=== PATIENT | male | born 1950 | race Caucasian/White ===

== ENCOUNTER 2020-03-12 12:50 | Observation (INO) | payer MEDICARE, OTHER ==
[2020-03-12] MEDS ORDERED: Sodium Chloride 0.9% 10 ML Syringe FLUSH PRN (13:00)
[2020-03-12] MEDS ORDERED: Albuterol 6.7 GM Inhaler INH ONE (13:03)
[2020-03-12] MEDS ORDERED: methylPREDNISolone Sodium Succinate 125 MG/2 ML SDV IVPUSH ONE (13:04)
--- NOTE | 2020-03-12 13:42 | CR ---
Chest: Portable view of the chest was obtained. Comparison: Prior chest x-ray of 02/22/14. Findings: Heart size is slightly enlarged. Upper mediastinum is normal. Lungs are clear with no acute parenchymal change. Bony structures show nothing acute. Impression: 1. Findings as noted above. 2. Nothing acute is seen on portable chest x-ray. Diagnostic code #2
--- NOTE | 2020-03-12 13:43 | EDM.PDOC ---
ED HPI GENERAL MEDICAL PROBLEM - General Chief Complaint: Respiratory Problem Stated Complaint: [facility] Time Seen by Provider: 03/12/20 12:51 Source of Information: Reports: Patient, EMS History Limitations: Reports: No Limitations - History of Present Illness INITIAL COMMENTS - FREE TEXT/NARRATIVE: The patient presents by [facility] for a fall and low oxygen saturations. He is not sure why he fell. He was confused on scene and his oxygen saturations were in the low 80s. He was put on oxygen by nasal cannula and he is doing better. He did not hit his head or hurt his neck. He is on eliquis for atrial fibrillation. He has no headache or neck pain. He has no fever or chills. He rbuin have a cough and shortness of breath. He has no chest pain, abdominal pain, nausea or vomiting. He has no numbness. He does have generalized weakness. He is a daily smoker. He does not have a history of lung issues such as asthma or COPD. Onset: Sudden Duration: Minutes: Severity: Moderate Improves with: Reports: None Worsens with: Reports: None Context: Reports: Trauma (fall) Associated Symptoms: Reports: Cough, Shortness of Breath. Denies: Chest Pain, Fever/Chills, Headaches, Nausea/Vomiting - Related Data Allergies Allergy/AdvReac Type Severity Reaction Status Date / Time No Known Allergies Allergy Verified 03/12/20 12:55 Home Meds: Home Meds Apixaban [Eliquis] 5 mg PO BID 03/12/20 [History] atenoloL [Atenolol] 100 mg PO DAILY 03/12/20 [History] hydroCHLOROthiazide [Hydrochlorothiazide] 12.5 mg PO DAILY 03/12/20 [History] lisinopriL [Lisinopril] 5 mg PO DAILY 03/12/20 [History] Past Medical History Cardiovascular History: Reports: Hypertension Social & Family History - Tobacco Use Tobacco Use Status *Q: Current Every Day Tobacco User Years of Tobacco use: 50 Packs/Tins Daily: 1 - Recreational Drug Use Recreational Drug Use: No ED ROS GENERAL - Review of Systems Review Of Systems: See Below Constitutional: Reports: No Symptoms HEENT: Reports: No Symptoms Respiratory: Reports: Shortness of Breath, Cough Cardiovascular: Reports: No Symptoms Endocrine: Reports: No Symptoms GI/Abdominal: Reports: No Symptoms : Reports: No Symptoms Musculoskeletal: Reports: No Symptoms ED EXAM, GENERAL - Physical Exam Exam: See Below Exam Limited By: No Limitations General Appearance: Alert, No Apparent Distress Ears: Normal External Exam Nose: Normal Inspection Head: Atraumatic, Normocephalic Neck: Normal Inspection Respiratory/Chest: No Respiratory Distress, Decreased Breath Sounds, Wheezing (Moderate) Cardiovascular: No Murmur, Irregularly Irregular, Other (Edema in both legs) #1 Interpretation EKG Date: 03/12/20 Time: 13:19 Rhythm: A-Fib Rate (Beats/Min): 90 [place]: Normal P-Wave: Absent QRS: Normal ST-T: Other (Flattened T waves in the anterior leads) QT: Normal Course - Vital Signs Last Recorded V/S: Last Vital Signs Temp 97.3 F 03/12/20 15:17 Pulse 100 03/12/20 15:17 Resp 13 03/12/20 15:17 BP 117/91 H 03/12/20 15:18 Pulse Ox 95 03/12/20 15:17 - Orders/Labs/Meds Orders: Active Orders 24 hr Category Date Time Status Blood Pressure Mgt: Sepsis [RC] Q15MX2 Care 03/12/20 14:57 Active Cardiac Monitoring [RC] . DIRECTED Care 03/12/20 13:00 Active EKG Documentation Completion [RC] STAT Care 03/12/20 13:01 Active Oxygen Therapy [RC] PRN Care 03/12/20 13:00 Active Peripheral IV Care [RC] . DIRECTED Care 03/12/20 13:01 Active RT Post Treatment Assessment [RC] Click to Edit Care 03/12/20 13:03 Active RT Pre-Treatment Assessment [RC] Click to Edit Care 03/12/20 13:03 Active CULTURE BLOOD [BC] Stat Lab 03/12/20 13:30 Received CULTURE BLOOD [BC] Stat Lab 03/12/20 13:40 Received INR,PT,PROTHROMBIN TIME [COAG] Stat Lab 03/12/20 14:08 Received LACTIC ACID [CHEM] Stat Lab 03/12/20 16:40 Ordered UA W/MICROSCOPIC [URIN] Stat Lab 03/12/20 13:00 Ordered Lactated Ringers [Ringers, Lactated] 1,000 ml Med 03/12/20 15:00 Active IV ASDIRECTED Sodium Chloride 0.9% [Saline Flush] Med 03/12/20 13:00 Active 10 ml FLUSH ASDIRECTED PRN Blood Culture x2 Reflex Set [OM.PC] Stat Oth 03/12/20 13:03 Ordered Peripheral IV Insertion Adult [OM.PC] Stat Oth 03/12/20 13:00 Ordered Medication Orders Lactated Ringer's (Ringers, Lactated) 1,000 mls @ 1,000 mls/hr IV ASDIRECTED ADAMA Stop: 03/14/20 15:59 Last Admin: 03/12/20 15:14 Dose: 1,000 mls/hr Documented by: GLADIS Sodium Chloride (Saline Flush) 10 ml FLUSH ASDIRECTED PRN PRN Reason: Keep Vein Open Last Admin: 03/12/20 13:11 Dose: 10 ml Documented by: STPEHANIA Labs: Laboratory Tests 03/12/20 03/12/20 03/12/20 Range/Units 13:10 13:40 14:08 WBC 7.93 (4.23-9.07) K/mm3 RBC 4.46 L (4.63-6.08) M/mm3 Hgb 15.4 (13.7-17.5) gm/dl Hct 46.6 (40.1-51.0) % MCV 104.5 H D (79.0-92.2) fl MCH 34.5 H (25.7-32.2) pg MCHC 33.0 (32.2-35.5) g/dl RDW Std Deviation 54.8 H (35.1-43.9) fL Plt Count 241 (163-337) K/mm3 MPV 9.5 (9.4-12.3) fl Neut % (Auto) 61.4 (34.0-67.9) % Lymph % (Auto) 27.5 (21.8-53.1) % [place] % (Auto) 9.3 (5.3-12.2) % Eos % (Auto) 1.0 (0.8-7.0) Baso % (Auto) 0.5 (0.1-1.2) % Neut # (Auto) 4.87 (1.78-5.38) K/mm3 Lymph # (Auto) 2.18 (1.32-3.57) K/mm3 [place] # (Auto) 0.74 (0.30-0.82) K/mm3 Eos # (Auto) 0.08 (0.04-0.54) K/mm3 Baso # (Auto) 0.04 (0.01-0.08) K/mm3 Sodium (136-145) mEq/L Potassium (3.5-5.1) mEq/L Chloride (98-107) mEq/L Carbon Dioxide (21-32) mEq/L Anion Gap (5-15) BUN (7-18) mg/dL Creatinine (0.7-1.3) mg/dL Est Cr Clr Drug Dosing mL/min Estimated GFR (MDRD) (>60) mL/min BUN/Creatinine Ratio (14-18) Glucose (80-115) mg/dL Lactic Acid 4.2 H* (0.4-2.0) mmol/L Calcium (8.5-10.1) mg/dL Total Bilirubin (0.2-1.0) mg/dL AST (15-37) U/L ALT (16-63) U/L Alkaline Phosphatase (46-116) U/L Troponin I (0.00-0.056) ng/mL C-Reactive Protein (<1.0) mg/dL Total Protein (6.4-8.2) g/dl Albumin (3.4-5.0) g/dl Globulin gm/dL Albumin/Globulin Ratio (1-2) Ethyl Alcohol (0.00) gm% SARS-CoV-2 RNA (ELIZABETH) Negative (NEGATIVE) 03/12/20 03/12/20 Range/Units 14:08 14:08 WBC (4.23-9.07) K/mm3 RBC (4.63-6.08) M/mm3 Hgb (13.7-17.5) gm/dl Hct (40.1-51.0) % MCV (79.0-92.2) fl MCH (25.7-32.2) pg MCHC (32.2-35.5) g/dl RDW Std Deviation (35.1-43.9) fL Plt Count (163-337) K/mm3 MPV (9.4-12.3) fl Neut % (Auto) (34.0-67.9) % Lymph % (Auto) (21.8-53.1) % [place] % (Auto) (5.3-12.2) % Eos % (Auto) (0.8-7.0) Baso % (Auto) (0.1-1.2) % Neut # (Auto) (1.78-5.38) K/mm3 Lymph # (Auto) (1.32-3.57) K/mm3 [place] # (Auto) (0.30-0.82) K/mm3 Eos # (Auto) (0.04-0.54) K/mm3 Baso # (Auto) (0.01-0.08) K/mm3 Sodium 142 (136-145) mEq/L Potassium 4.3 (3.5-5.1) mEq/L Chloride 102 (98-107) mEq/L Carbon Dioxide 30 (21-32) mEq/L Anion Gap 14.3 (5-15) BUN 44 H (7-18) mg/dL Creatinine 1.7 H (0.7-1.3) mg/dL Est Cr Clr Drug Dosing 41.75 mL/min Estimated GFR (MDRD) 40 (>60) mL/min BUN/Creatinine Ratio 25.9 H (14-18) Glucose 106 (80-115) mg/dL Lactic Acid (0.4-2.0) mmol/L Calcium 8.8 (8.5-10.1) mg/dL Total Bilirubin 0.7 (0.2-1.0) mg/dL AST 98 H (15-37) U/L ALT 69 H (16-63) U/L Alkaline Phosphatase 138 H (46-116) U/L Troponin I < 0.017 (0.00-0.056) ng/mL C-Reactive Protein 1.0 (<1.0) mg/dL Total Protein 7.2 (6.4-8.2) g/dl Albumin 3.4 (3.4-5.0) g/dl Globulin 3.8 gm/dL Albumin/Globulin Ratio 0.9 L (1-2) Ethyl Alcohol 0.20 (0.00) gm% SARS-CoV-2 RNA (ELIZABETH) (NEGATIVE) Meds: Medications Generic Name Dose Route Start Last Admin Trade Name Freq PRN Reason Stop Dose Admin Lactated Ringer's 1,000 mls @ 1,000 mls/hr 03/12/20 15:00 03/12/20 15:14 Ringers, Lactated IV 03/14/20 15:59 1,000 mls/hr ASDIRECTED ADAMA Administration Sodium Chloride 10 ml 03/12/20 13:00 03/12/20 13:11 Saline Flush FLUSH 10 ml ASDIRECTED PRN Administration Keep Vein Open Discontinued Medications Generic Name Dose Route Start Last Admin Trade Name Freq PRN Reason Stop Dose Admin Albuterol 0 gm 03/12/20 13:03 03/12/20 13:22 Proventil Hfa INH 03/12/20 13:04 2 puff ONETIME ONE Administration Ceftriaxone Sodium 2 gm/ 100 mls @ 200 mls/hr 03/12/20 14:51 03/12/20 15:15 Sodium Chloride IV 03/12/20 15:20 200 mls/hr ONETIME ONE Administration Methylprednisolone Sodium Succinate 125 mg 03/12/20 13:04 03/12/20 13:10 Solu-Medrol IVPUSH 03/12/20 13:05 125 mg ONETIME ONE Administration - Re-Assessments/Exams Free Text/Narrative Re-Assessment/Exam: 03/12/20 13:46 I ordered oxygen, IV saline lock, EKG, CXR, CT of his head, labs, albuterol and COVID 19. 03/12/20 15:21 His CXR shows nothing acute. His EKG shows atrial fibrillation with no acute changes. The CT of his head shows low density within the right temporal region suspicious for small old infarct. Other senescent change as noted above. No acute intracranial hemorrhage is appreciated. His CBC looks good. His creatinine is elevated at 1.7. His lactic acid is elevated at 4.2. His AST was elevated at 98. His ALT was elevated at 69. His alk phos is elevated at 138. His troponin is negative. His CRP is normal. His COVID 19 test is negative. His lungs sound better but he is still requiring oxygen. I feel he has some undiagnosed COPD. I have ordered rocephin 2grams IV and a fluid bolus. His lactic acid is high. His blood alcohol is elevate at 0.2. I do not feel this is sepsis. I feel this is a COPD exacerbation with dehydration. Departure - Departure Time of Disposition: 15:35 Disposition: Admitted As Inpatient 65 Condition: Poor Clinical Impression: COPD exacerbation, Hypoxia, Dehydration, Elevated lactic acid level Fall Qualifiers: Encounter type: initial encounter Qualified Code(s): W19.XXXA - Unspecified fall, initial encounter Alcohol intoxication Qualifiers: Complication of substance-induced condition: uncomplicated Qualified Code(s): F10.920 - Alcohol use, unspecified with intoxication, uncomplicated - Discharge Information Referrals: Matteo Kaur Jr, MD [Primary Care Provider] - Forms: ED Department Discharge Sepsis Event Note (ED) - Evaluation Sepsis Screening Result: No Definite Risk - Focused Exam Vital Signs: Vital Signs Temp Pulse Resp BP Pulse Ox 03/12/20 15:18 117/91 H 03/12/20 15:17 97.3 F 100 13 95 03/12/20 12:51 97.2 F 87 13 112/86 94 L - My Orders Last 24 Hours: My Active Orders 03/12/20 13:00 Cardiac Monitoring [RC] . DIRECTED Oxygen Therapy [RC] PRN UA W/MICROSCOPIC [URIN] Stat Sodium Chloride 0.9% [Saline Flush] 10 ml FLUSH ASDIRECTED PRN Peripheral IV Insertion Adult [OM.PC] Stat 03/12/20 13:01 EKG Documentation Completion [RC] STAT Peripheral IV Care [RC] . DIRECTED 03/12/20 13:03 RT Post Treatment Assessment [RC] Click to Edit RT Pre-Treatment Assessment [RC] Click to Edit Blood Culture x2 Reflex Set [OM.PC] Stat 03/12/20 13:30 CULTURE BLOOD [BC] Stat 03/12/20 13:40 CULTURE BLOOD [BC] Stat 03/12/20 14:08 INR,PT,PROTHROMBIN TIME [COAG] Stat 03/12/20 14:57 Blood Pressure Mgt: Sepsis [RC] Q15MX2 03/12/20 15:00 Lactated Ringers [Ringers, Lactated] 1,000 ml IV ASDIRECTED 03/12/20 16:40 LACTIC ACID [CHEM] Stat - Assessment/Plan Last 24 Hours: My Active Orders 03/12/20 13:00 Cardiac Monitoring [RC] . DIRECTED Oxygen Therapy [RC] PRN UA W/MICROSCOPIC [URIN] Stat Sodium Chloride 0.9% [Saline Flush] 10 ml FLUSH ASDIRECTED PRN Peripheral IV Insertion Adult [OM.PC] Stat 03/12/20 13:01 EKG Documentation Completion [RC] STAT Peripheral IV Care [RC] . DIRECTED 03/12/20 13:03 RT Post Treatment Assessment [RC] Click to Edit RT Pre-Treatment Assessment [RC] Click to Edit Blood Culture x2 Reflex Set [OM.PC] Stat 03/12/20 13:30 CULTURE BLOOD [BC] Stat 03/12/20 13:40 CULTURE BLOOD [BC] Stat 03/12/20 14:08 INR,PT,PROTHROMBIN TIME [COAG] Stat 03/12/20 14:57 Blood Pressure Mgt: Sepsis [RC] Q15MX2 03/12/20 15:00 Lactated Ringers [Ringers, Lactated] 1,000 ml IV ASDIRECTED 03/12/20 16:40 LACTIC ACID [CHEM] Stat
--- NOTE | 2020-03-12 14:18 | CT ---
Head CT Technique: Multiple axial sections through the brain were obtained. Intravenous contrast was not utilized. Comparison: No prior intracranial imaging is available. Findings: Ventricles along with basal cisterns and sulci over the convexities are moderately prominent. 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 Mild areas of diminished density are noted within the periventricular white matter which is most likely due to small vessel ischemic demyelination change. No evidence of intracranial hemorrhage. No midline shift or mass-effect is appreciated. Bone window settings were reviewed. Visualized paranasal sinuses and mastoid sinuses show nothing acute. No acute calvarial finding is appreciated. Impression: 1. Low density within the right temporal region suspicious for small old infarct. 2. Other senescent change as noted above. 3. No acute intracranial hemorrhage is appreciated. Diagnostic code #2
[2020-03-12] MEDS ORDERED: cefTRIAXone 2 GM in Sodium Chloride 0.9% 100 ML IV ONE (14:51)
[2020-03-12] MEDS ORDERED: Lactated Ringers 1,000 ML IV SCH (15:00)
[2020-03-12] MEDS ORDERED: Docusate Sodium 100 MG Cap PO PRN (15:57)
[2020-03-12] MEDS ORDERED: Ondansetron 4 MG Tab.DIS PO PRN (15:57)
[2020-03-12] MEDS ORDERED: Acetaminophen 325 MG Tab PO PRN (15:57)
[2020-03-12] MEDS ORDERED: oxyCODONE 5 MG Tab PO PRN (15:57)
[2020-03-12] MEDS ORDERED: Sodium Chloride 0.9% 1,000 ML IV SCH (16:00)
--- NOTE | 2020-03-12 16:12 | PCM.HP.2 ---
H&P History of Present Illness - General Date of Service: 03/12/20 Admit Problem/Dx: Admission Diagnosis/Problem Admission Diagnosis/Problem COPD, Moderate chronic obstructive pulmonary disease Source of Information: Patient History Limitations: Reports: No Limitations, Intoxication - History of Present Illness Initial Comments - Free Text/Narative: The patient is a 69-year-old gentleman who had presented to the emergency department after a fall and low oxygen saturations. The patient was also noted to have low oxygen saturations. He does not remember what happened with his fall. The patient is a heavy smoker and has not been diagnosed with COPD or emphysema yet. Patient also had alcohol consumption before presentation to the emergency department. The patient has denied any pain. He does not have any withdrawal symptoms. The patient has had that he would like to have a nicotine patch. The patient also has denied any fever or chills. He has had no nausea or vomiting. The patient's home medications that include Eliquis 5 mg p.o. twice daily, atenolol 100 mg p.o. daily, hydrochlorothiazide 12.5 mg daily and lisinopril 5 mg p.o. daily. The patient says that he is not sure why he has been taking Eliquis. The patient has no other complaints at this time. Onset of Symptoms: Reports: Sudden Duration of Symptoms: Reports: Day(s): Severity: Mild Improves with: Reports: None Worsens with: Reports: None Associated Symptoms: Reports: No Other Symptoms - Related Data Allergies/Adverse Reactions: Allergies Allergy/AdvReac Type Severity Reaction Status Date / Time No Known Allergies Allergy Verified 03/12/20 12:55 Home Medications: Home Meds Apixaban [Eliquis] 5 mg PO BID 03/12/20 [History] atenoloL [Atenolol] 100 mg PO DAILY 03/12/20 [History] hydroCHLOROthiazide [Hydrochlorothiazide] 12.5 mg PO DAILY 03/12/20 [History] lisinopriL [Lisinopril] 5 mg PO DAILY 03/12/20 [History] Past Medical History HEENT History: Reports: None Cardiovascular History: Reports: Afib, Hypertension Respiratory History: Reports: None Gastrointestinal History: Reports: None Genitourinary History: Reports: None Musculoskeletal History: Reports: None Psychiatric History: Reports: Anxiety Endocrine/Metabolic History: Reports: None Hematologic History: Reports: None Immunologic History: Reports: None Dermatologic History: Reports: None - Infectious Disease History Infectious Disease History: Reports: None Social & Family History - Tobacco Use Tobacco Use Status *Q: Current Every Day Tobacco User Years of Tobacco use: 50 Packs/Tins Daily: 1 - Alcohol Use Alcohol Use History: Yes Alcohol Use in Last Twelve Months: Yes Alcohol Use Frequency: Daily - Recreational Drug Use Recreational Drug Use: No - Living Situation & Occupation Living situation: Reports: , with Spouse Occupation: Retired H&P Review of Systems - Review of Systems: Review Of Systems: See Below General: Reports: Weakness HEENT: Reports: No Symptoms Pulmonary: Reports: No Symptoms Cardiovascular: Reports: No Symptoms Gastrointestinal: Reports: No Symptoms Genitourinary: Reports: No Symptoms Musculoskeletal: Reports: No Symptoms Skin: Reports: No Symptoms Psychiatric: Reports: Anxiety Neurological: Reports: No Symptoms Hematologic/Lymphatic: Reports: No Symptoms Immunologic: Reports: No Symptoms Exam - Exam Exam: See Below - Vital Signs Vital Signs: Last Vital Signs Temp 36.3 C 03/12/20 15:17 Pulse 100 03/12/20 15:17 Resp 13 03/12/20 15:17 BP 117/91 H 03/12/20 15:18 Pulse Ox 95 03/12/20 15:17 Weight: 77.111 kg - Exam Quality Assessment: Supplemental Oxygen, DVT Prophylaxis General: Alert, Oriented, Cooperative HEENT: Conjunctiva Clear, EACs Clear, Hearing Intact, Mucosa Moist & [place], Pupils Equal, Pupils Reactive, PERRLA Neck: Supple, Trachea Midline Lungs: Decreased Breath Sounds, Crackles, Rales Cardiovascular: Regular Rate, Irregular Rhythm GI/Abdominal Exam: Normal Bowel Sounds, Soft, Non-Tender, No Distention (Male) Exam: Deferred Rectal (Males) Exam: Deferred Back Exam: Normal Inspection, Full Range of Motion Extremities: Normal Inspection, No Pedal Edema Skin: Warm, Dry, Intact, Other (The patient's face is flushed red) Neurological: Cranial Nerves Intact, Normal Gait, Normal Speech Neuro Extensive - Mental Status: Alert, Oriented x3 Neuro Extensive - Motor, Sensory, Reflexes: CN II-XII Intact Psychiatric: Alert, Normal Affect, Anxious - Patient Data Lab Results Last 24 hrs: Laboratory Results - last 24 hr 03/12/20 03/12/20 03/12/20 Range/Units 13:10 13:40 14:08 WBC 7.93 (4.23-9.07) K/mm3 RBC 4.46 L (4.63-6.08) M/mm3 Hgb 15.4 (13.7-17.5) gm/dl Hct 46.6 (40.1-51.0) % MCV 104.5 H D (79.0-92.2) fl MCH 34.5 H (25.7-32.2) pg MCHC 33.0 (32.2-35.5) g/dl RDW Std Deviation 54.8 H (35.1-43.9) fL Plt Count 241 (163-337) K/mm3 MPV 9.5 (9.4-12.3) fl Neut % (Auto) 61.4 (34.0-67.9) % Lymph % (Auto) 27.5 (21.8-53.1) % [place] % (Auto) 9.3 (5.3-12.2) % Eos % (Auto) 1.0 (0.8-7.0) Baso % (Auto) 0.5 (0.1-1.2) % Neut # (Auto) 4.87 (1.78-5.38) K/mm3 Lymph # (Auto) 2.18 (1.32-3.57) K/mm3 [place] # (Auto) 0.74 (0.30-0.82) K/mm3 Eos # (Auto) 0.08 (0.04-0.54) K/mm3 Baso # (Auto) 0.04 (0.01-0.08) K/mm3 PT (9.7-12.0) SECONDS INR Sodium (136-145) mEq/L Potassium (3.5-5.1) mEq/L Chloride (98-107) mEq/L Carbon Dioxide (21-32) mEq/L Anion Gap (5-15) BUN (7-18) mg/dL Creatinine (0.7-1.3) mg/dL Est Cr Clr Drug Dosing mL/min Estimated GFR (MDRD) (>60) mL/min BUN/Creatinine Ratio (14-18) Glucose (80-115) mg/dL Lactic Acid 4.2 H* (0.4-2.0) mmol/L Calcium (8.5-10.1) mg/dL Total Bilirubin (0.2-1.0) mg/dL AST (15-37) U/L ALT (16-63) U/L Alkaline Phosphatase (46-116) U/L Troponin I (0.00-0.056) ng/mL C-Reactive Protein (<1.0) mg/dL Total Protein (6.4-8.2) g/dl Albumin (3.4-5.0) g/dl Globulin gm/dL Albumin/Globulin Ratio (1-2) Ethyl Alcohol (0.00) gm% SARS-CoV-2 RNA (ELIZABETH) Negative (NEGATIVE) 03/12/20 03/12/20 03/12/20 Range/Units 14:08 14:08 14:08 WBC (4.23-9.07) K/mm3 RBC (4.63-6.08) M/mm3 Hgb (13.7-17.5) gm/dl Hct (40.1-51.0) % MCV (79.0-92.2) fl MCH (25.7-32.2) pg MCHC (32.2-35.5) g/dl RDW Std Deviation (35.1-43.9) fL Plt Count (163-337) K/mm3 MPV (9.4-12.3) fl Neut % (Auto) (34.0-67.9) % Lymph % (Auto) (21.8-53.1) % [place] % (Auto) (5.3-12.2) % Eos % (Auto) (0.8-7.0) Baso % (Auto) (0.1-1.2) % Neut # (Auto) (1.78-5.38) K/mm3 Lymph # (Auto) (1.32-3.57) K/mm3 [place] # (Auto) (0.30-0.82) K/mm3 Eos # (Auto) (0.04-0.54) K/mm3 Baso # (Auto) (0.01-0.08) K/mm3 PT 11.0 (9.7-12.0) SECONDS INR 1.03 Sodium 142 (136-145) mEq/L Potassium 4.3 (3.5-5.1) mEq/L Chloride 102 (98-107) mEq/L Carbon Dioxide 30 (21-32) mEq/L Anion Gap 14.3 (5-15) BUN 44 H (7-18) mg/dL Creatinine 1.7 H (0.7-1.3) mg/dL Est Cr Clr Drug Dosing 41.75 mL/min Estimated GFR (MDRD) 40 (>60) mL/min BUN/Creatinine Ratio 25.9 H (14-18) Glucose 106 (80-115) mg/dL Lactic Acid (0.4-2.0) mmol/L Calcium 8.8 (8.5-10.1) mg/dL Total Bilirubin 0.7 (0.2-1.0) mg/dL AST 98 H (15-37) U/L ALT 69 H (16-63) U/L Alkaline Phosphatase 138 H (46-116) U/L Troponin I < 0.017 (0.00-0.056) ng/mL C-Reactive Protein 1.0 (<1.0) mg/dL Total Protein 7.2 (6.4-8.2) g/dl Albumin 3.4 (3.4-5.0) g/dl Globulin 3.8 gm/dL Albumin/Globulin Ratio 0.9 L (1-2) Ethyl Alcohol 0.20 (0.00) gm% SARS-CoV-2 RNA (ELIZABETH) (NEGATIVE) Result Diagrams: 03/13/20 05:30 03/13/20 05:30 Sepsis Event Note - Evaluation Sepsis Screening Result: No Definite Risk - Focused Exam Vital Signs: Vital Signs Temp Pulse Resp BP Pulse Ox 03/12/20 15:18 117/91 H 03/12/20 15:17 36.3 C 100 13 95 03/12/20 15:12 117/91 H 03/12/20 12:51 36.2 C 87 13 112/86 94 L - Problem List (1) COPD exacerbation SNOMED Code(s): 777226133 ICD Code: J44.1 - CHRONIC OBSTRUCTIVE PULMONARY DISEASE W (ACUTE) EXACERBATION Status: Chronic Priority: High Current Visit: Yes (2) Alcohol intoxication SNOMED Code(s): 58431368 ICD Code: F10.929 - ALCOHOL USE, UNSPECIFIED WITH INTOXICATION, UNSPECIFIED Status: Chronic Priority: High Current Visit: Yes Qualifiers: Complication of substance-induced condition: uncomplicated Qualified Code(s): F10.920 - Alcohol use, unspecified with intoxication, uncomplicated (3) Chronic a-fib SNOMED Code(s): 475642020 ICD Code: I48.20 - CHRONIC ATRIAL FIBRILLATION, UNSPECIFIED Status: Chronic Priority: Medium Current Visit: Yes (4) Hypoxia SNOMED Code(s): 603144448 ICD Code: R09.02 - HYPOXEMIA Status: Acute Priority: High Current Visit : Yes Problem List Initiated/Reviewed/Updated: Yes Orders Last 24hrs: Active Orders 24 hr Category Date Time Status Patient Status [ADT] Routine ADT 03/12/20 16:04 Ordered Blood Pressure Mgt: Sepsis [RC] [id number] Care 03/12/20 14:57 Active Cardiac Monitoring [RC] . DIRECTED Care 03/12/20 13:00 Active EKG Documentation Completion [RC] STAT Care 03/12/20 13:01 Active Oxygen Therapy [RC] PRN Care 03/12/20 13:00 Active Oxygen Therapy [RC] PRN Care 03/12/20 16:04 Ordered Peripheral IV Care [RC] . DIRECTED Care 03/12/20 13:01 Active RT Aerosol Therapy [RC] ASDIRECTED Care 03/12/20 16:08 Ordered RT Post Treatment Assessment [RC] Click to Edit Care 03/12/20 13:03 Active RT Pre-Treatment Assessment [RC] Click to Edit Care 03/12/20 13:03 Active Up With Assistance [RC] ASDIRECTED Care 03/12/20 15:57 Ordered VTE/DVT Education [RC] PER UNIT ROUTINE Care 03/12/20 16:04 Ordered Vital Signs [RC] Q4H Care 03/12/20 16:04 Ordered Heart Healthy Diet [DIET] Diet 03/12/20 Dinner Ordered CBC WITH AUTO DIFF [HEME] AM Lab 03/13/20 05:11 Ordered COMPREHENSIVE METABOLIC PN,CMP [CHEM] AM Lab 03/13/20 05:11 Ordered CULTURE BLOOD [BC] Stat Lab 03/12/20 13:30 Received CULTURE BLOOD [BC] Stat Lab 03/12/20 13:40 Received LACTIC ACID [CHEM] Stat Lab 03/12/20 16:40 Ordered MAGNESIUM [CHEM] AM Lab 03/13/20 05:11 Ordered UA W/MICROSCOPIC [URIN] Stat Lab 03/12/20 13:00 Ordered Acetaminophen [TylenoL] Med 03/12/20 15:57 Ordered 650 mg PO Q4H PRN Albuterol/Ipratropium [DuoNeb 3.0-0.5 MG/3 ML] Med 03/12/20 15:57 Ordered 3 ml NEB Q4H PRN Azithromycin [Zithromax] 500 mg Med 03/12/20 16:00 Ordered Sodium Chloride 0.9% [Normal Saline (AdvBag)] 250 ml IV Q24H Docusate Sodium [Colace] Med 03/12/20 15:57 Ordered 100 mg PO BID PRN Lactated Ringers [Ringers, Lactated] 1,000 ml Med 03/12/20 15:00 Active IV ASDIRECTED Nicotine [Habitrol] Med 03/12/20 16:15 Ordered 21 mg TRDERM DAILY Ondansetron [Zofran ODT] Med 03/12/20 15:57 Ordered 4 mg PO Q6H PRN Sodium Chloride 0.9% [Normal Saline] 1,000 ml Med 03/12/20 16:00 Ordered IV ASDIRECTED Sodium Chloride 0.9% [Saline Flush] Med 03/12/20 13:00 Active 10 ml FLUSH ASDIRECTED PRN oxyCODONE Med 03/12/20 15:57 Ordered 5 mg PO Q4H PRN predniSONE Med 03/12/20 16:00 Ordered 40 mg PO .Daily Taper traZODone Med 03/12/20 21:00 Ordered 25 mg PO BEDTIME Blood Culture x2 Reflex Set [OM.PC] Stat Oth 03/12/20 13:03 Ordered Peripheral IV Insertion Adult [OM.PC] Stat Oth 03/12/20 13:00 Ordered Resuscitation Status Routine Resus Stat 03/12/20 15:57 Ordered Medication Orders Acetaminophen (Tylenol) 650 mg PO Q4H PRN PRN Reason: Pain (Mild 1-3)/fever Albuterol/Ipratropium (Duoneb 3.0-0.5 Mg/3 Ml) 3 ml NEB Q4H PRN PRN Reason: Shortness Of Breath/wheezing Docusate Sodium (Colace) 100 mg PO BID PRN PRN Reason: Constipation Lactated Ringer's (Ringers, Lactated) 1,000 mls @ 1,000 mls/hr IV ASDIRECTED ADAMA Stop: 03/14/20 15:59 Last Admin: 03/12/20 15:14 Dose: 1,000 mls/hr Documented by: GLADIS Sodium Chloride (Normal Saline) 1,000 mls @ 75 mls/hr IV ASDIRECTED [facility] Nicotine (Habitrol) 21 mg TRDERM DAILY [facility] Ondansetron HCl (Zofran Odt) 4 mg PO Q6H PRN PRN Reason: nausea, able to take PO Oxycodone HCl (Oxycodone) 5 mg PO Q4H PRN PRN Reason: Pain (moderate 4-6) Sodium Chloride (Saline Flush) 10 ml FLUSH ASDIRECTED PRN PRN Reason: Keep Vein Open Last Admin: 03/12/20 13:11 Dose: 10 ml Documented by: STEPHANIA Assessment/Plan Comment:: The patient is a 69-year-old gentleman who has been admitted out of concern for a fall and syncopal episode likely related to the patient's hypoxia. The patient has not been diagnosed with COPD or emphysema however, I believe that it is important to treat this as a COPD exacerbation at this point. Patient's lung examination is consistent with either acute on chronic bronchitis or COPD. The patient will need to have a PFT once he is improved and is discharged. The patient says that he does not have any issues with alcohol withdrawal however I have placed him on CIWA protocol as the patient appears to be anxious at this point. The patient will also be kept on regular diet as tolerated. He will not have DVT prophylaxis as he is currently anticoagulated with the use of Eliquis for his chronic atrial fibrillation. The patient has been encouraged to ambulate. He also has been strongly counseled with regards to smoking cessation and he has been provided nicotine patch. The patient should be appropriate for discharge in 2 to 3 days depending upon his oxygen needs. - Mortality Measure Prognosis:: Good
[2020-03-12] MEDS: Azithromycin 500 MG in Sodium Chloride 0.9% 250 ML IV SCH (17:45)
[2020-03-12] MEDS: predniSONE 20 MG Tab PO SCH (17:48)
[2020-03-12] MEDS: Nicotine 21 MG/24 Hr Patch TRDERM SCH (17:49)
[2020-03-12] MEDS: Sodium Chloride 0.9% 1,000 ML IV SCH (18:55)
[2020-03-12] MEDS: LORazepam 2 MG/ML SDV IVPUSH PRN ×2 (21:58→23:58)
[2020-03-12] MEDS: traZODone 50 MG Tab PO SCH (22:02)
[2020-03-13] MEDS: Sodium Chloride 0.9% 1,000 ML IV SCH ×3 (02:50→18:35)
[2020-03-13] MEDS: LORazepam 2 MG/ML SDV IVPUSH PRN ×2 (05:25→09:33)
--- NOTE | 2020-03-13 07:49 | PCM.PN ---
- General Info Date of Service: 03/13/20 Admission Dx/Problem (Free Text): Admission Diagnosis/Problem Admission Diagnosis/Problem COPD, Moderate chronic obstructive pulmonary disease Subjective Update: The patient is a 69-year-old gentleman who had been admitted yesterday out of concern for syncopal episode that was thought to be secondary to COPD exacerbation. The patient has said that he has improved. His breathing has improved. He still has some concerns about anxiety and his weakness. The patient has denied any fever or chills. He has been tolerating his diet. Functional Status: Reports: Pain Controlled, Tolerating Diet - Review of Systems General: Reports: Weakness, Fatigue HEENT: Reports: No Symptoms Pulmonary: Reports: Shortness of Breath, Cough Cardiovascular: Reports: No Symptoms Gastrointestinal: Reports: No Symptoms Genitourinary: Reports: No Symptoms Musculoskeletal: Reports: No Symptoms Skin: Reports: No Symptoms Neurological: Reports: No Symptoms Psychiatric: Reports: No Symptoms - Patient Data Vitals - Most Recent: Last Vital Signs Temp 36.4 C 03/13/20 07:21 Pulse 106 H 03/13/20 07:21 Resp 16 03/13/20 07:21 BP 102/72 03/13/20 07:21 Pulse Ox 96 03/13/20 07:21 Weight - Most Recent: 79.061 kg I&O - Last 24 Hours: Intake & Output 03/12/20 03/13/20 03/13/20 22:59 06:59 14:59 Intake Total 1728 Output Total 400 Balance 1328 Lab Results Last 24 Hours: Laboratory Results - last 24 hr 03/12/20 03/12/20 03/12/20 Range/Units 13:10 13:40 14:08 WBC 7.93 (4.23-9.07) K/mm3 RBC 4.46 L (4.63-6.08) M/mm3 Hgb 15.4 (13.7-17.5) gm/dl Hct 46.6 (40.1-51.0) % MCV 104.5 H D (79.0-92.2) fl MCH 34.5 H (25.7-32.2) pg MCHC 33.0 (32.2-35.5) g/dl RDW Std Deviation 54.8 H (35.1-43.9) fL Plt Count 241 (163-337) K/mm3 MPV 9.5 (9.4-12.3) fl Neut % (Auto) 61.4 (34.0-67.9) % Lymph % (Auto) 27.5 (21.8-53.1) % [place] % (Auto) 9.3 (5.3-12.2) % Eos % (Auto) 1.0 (0.8-7.0) Baso % (Auto) 0.5 (0.1-1.2) % Neut # (Auto) 4.87 (1.78-5.38) K/mm3 Lymph # (Auto) 2.18 (1.32-3.57) K/mm3 [place] # (Auto) 0.74 (0.30-0.82) K/mm3 Eos # (Auto) 0.08 (0.04-0.54) K/mm3 Baso # (Auto) 0.04 (0.01-0.08) K/mm3 PT (9.7-12.0) SECONDS INR Sodium (136-145) mEq/L Potassium (3.5-5.1) mEq/L Chloride (98-107) mEq/L Carbon Dioxide (21-32) mEq/L Anion Gap (5-15) BUN (7-18) mg/dL Creatinine (0.7-1.3) mg/dL Est Cr Clr Drug Dosing mL/min Estimated GFR (MDRD) (>60) mL/min BUN/Creatinine Ratio (14-18) Glucose (80-115) mg/dL Lactic Acid 4.2 H* (0.4-2.0) mmol/L Calcium (8.5-10.1) mg/dL Magnesium (1.8-2.4) mg/dl Total Bilirubin (0.2-1.0) mg/dL AST (15-37) U/L ALT (16-63) U/L Alkaline Phosphatase (46-116) U/L Troponin I (0.00-0.056) ng/mL C-Reactive Protein (<1.0) mg/dL Total Protein (6.4-8.2) g/dl Albumin (3.4-5.0) g/dl Globulin gm/dL Albumin/Globulin Ratio (1-2) Urine Color (Yellow) Urine Appearance (Clear) Urine pH (5.0-8.0) Ur Specific [place] (1.005-1.030) Urine Protein (Negative) Urine Glucose (UA) (Negative) Urine Ketones (Negative) Urine Occult Blood (Negative) Urine Nitrite (Negative) Urine Bilirubin (Negative) Urine Urobilinogen (0.2-1.0) Ur Leukocyte Esterase (Negative) U Hyaline Cast (Auto) (0-5) /lpf Urine RBC (0-5) /hpf Urine WBC (0-5) /hpf Ur Squamous Epith Cells (0-5) /hpf Uric Acid Crystals (NONE) Urine Bacteria (FEW) /hpf Urine Mucus (FEW) /hpf Ethyl Alcohol (0.00) gm% SARS-CoV-2 RNA (ELIZABETH) Negative (NEGATIVE) 03/12/20 03/12/20 03/12/20 Range/Units 14:08 14:08 14:08 WBC (4.23-9.07) K/mm3 RBC (4.63-6.08) M/mm3 Hgb (13.7-17.5) gm/dl Hct (40.1-51.0) % MCV (79.0-92.2) fl MCH (25.7-32.2) pg MCHC (32.2-35.5) g/dl RDW Std Deviation (35.1-43.9) fL Plt Count (163-337) K/mm3 MPV (9.4-12.3) fl Neut % (Auto) (34.0-67.9) % Lymph % (Auto) (21.8-53.1) % [place] % (Auto) (5.3-12.2) % Eos % (Auto) (0.8-7.0) Baso % (Auto) (0.1-1.2) % Neut # (Auto) (1.78-5.38) K/mm3 Lymph # (Auto) (1.32-3.57) K/mm3 [place] # (Auto) (0.30-0.82) K/mm3 Eos # (Auto) (0.04-0.54) K/mm3 Baso # (Auto) (0.01-0.08) K/mm3 PT 11.0 (9.7-12.0) SECONDS INR 1.03 Sodium 142 (136-145) mEq/L Potassium 4.3 (3.5-5.1) mEq/L Chloride 102 (98-107) mEq/L Carbon Dioxide 30 (21-32) mEq/L Anion Gap 14.3 (5-15) BUN 44 H (7-18) mg/dL Creatinine 1.7 H (0.7-1.3) mg/dL Est Cr Clr Drug Dosing 41.75 mL/min Estimated GFR (MDRD) 40 (>60) mL/min BUN/Creatinine Ratio 25.9 H (14-18) Glucose 106 (80-115) mg/dL Lactic Acid (0.4-2.0) mmol/L Calcium 8.8 (8.5-10.1) mg/dL Magnesium (1.8-2.4) mg/dl Total Bilirubin 0.7 (0.2-1.0) mg/dL AST 98 H (15-37) U/L ALT 69 H (16-63) U/L Alkaline Phosphatase 138 H (46-116) U/L Troponin I < 0.017 (0.00-0.056) ng/mL C-Reactive Protein 1.0 (<1.0) mg/dL Total Protein 7.2 (6.4-8.2) g/dl Albumin 3.4 (3.4-5.0) g/dl Globulin 3.8 gm/dL Albumin/Globulin Ratio 0.9 L (1-2) Urine Color (Yellow) Urine Appearance (Clear) Urine pH (5.0-8.0) Ur Specific [place] (1.005-1.030) Urine Protein (Negative) Urine Glucose (UA) (Negative) Urine Ketones (Negative) Urine Occult Blood (Negative) Urine Nitrite (Negative) Urine Bilirubin (Negative) Urine Urobilinogen (0.2-1.0) Ur Leukocyte Esterase (Negative) U Hyaline Cast (Auto) (0-5) /lpf Urine RBC (0-5) /hpf Urine WBC (0-5) /hpf Ur Squamous Epith Cells (0-5) /hpf Uric Acid Crystals (NONE) Urine Bacteria (FEW) /hpf Urine Mucus (FEW) /hpf Ethyl Alcohol 0.20 (0.00) gm% SARS-CoV-2 RNA (ELIZABETH) (NEGATIVE) 03/12/20 03/12/20 03/12/20 Range/Units 16:40 18:00 20:40 WBC (4.23-9.07) K/mm3 RBC (4.63-6.08) M/mm3 Hgb (13.7-17.5) gm/dl Hct (40.1-51.0) % MCV (79.0-92.2) fl MCH (25.7-32.2) pg MCHC (32.2-35.5) g/dl RDW Std Deviation (35.1-43.9) fL Plt Count (163-337) K/mm3 MPV (9.4-12.3) fl Neut % (Auto) (34.0-67.9) % Lymph % (Auto) (21.8-53.1) % [place] % (Auto) (5.3-12.2) % Eos % (Auto) (0.8-7.0) Baso % (Auto) (0.1-1.2) % Neut # (Auto) (1.78-5.38) K/mm3 Lymph # (Auto) (1.32-3.57) K/mm3 [place] # (Auto) (0.30-0.82) K/mm3 Eos # (Auto) (0.04-0.54) K/mm3 Baso # (Auto) (0.01-0.08) K/mm3 PT (9.7-12.0) SECONDS INR Sodium (136-145) mEq/L Potassium (3.5-5.1) mEq/L Chloride (98-107) mEq/L Carbon Dioxide (21-32) mEq/L Anion Gap (5-15) BUN (7-18) mg/dL Creatinine (0.7-1.3) mg/dL Est Cr Clr Drug Dosing mL/min Estimated GFR (MDRD) (>60) mL/min BUN/Creatinine Ratio (14-18) Glucose (80-115) mg/dL Lactic Acid 4.4 H* 4.6 H* (0.4-2.0) mmol/L Calcium (8.5-10.1) mg/dL Magnesium (1.8-2.4) mg/dl Total Bilirubin (0.2-1.0) mg/dL AST (15-37) U/L ALT (16-63) U/L Alkaline Phosphatase (46-116) U/L Troponin I (0.00-0.056) ng/mL C-Reactive Protein (<1.0) mg/dL Total Protein (6.4-8.2) g/dl Albumin (3.4-5.0) g/dl Globulin gm/dL Albumin/Globulin Ratio (1-2) Urine Color Dark yellow (Yellow) Urine Appearance Clear (Clear) Urine pH 5.5 (5.0-8.0) Ur Specific [place] > or = 1.030 (1.005-1.030) Urine Protein 2+ H (Negative) Urine Glucose (UA) Negative (Negative) Urine Ketones Trace H (Negative) Urine Occult Blood Negative (Negative) Urine Nitrite Negative (Negative) Urine Bilirubin Negative (Negative) Urine Urobilinogen 1.0 (0.2-1.0) Ur Leukocyte Esterase Negative (Negative) U Hyaline Cast (Auto) 5-10 H (0-5) /lpf Urine RBC 0-5 (0-5) /hpf Urine WBC 0-5 (0-5) /hpf Ur Squamous Epith Cells 0-5 (0-5) /hpf Uric Acid Crystals Few H (NONE) Urine Bacteria Few (FEW) /hpf Urine Mucus Few (FEW) /hpf Ethyl Alcohol (0.00) gm% SARS-CoV-2 RNA (ELIZABETH) (NEGATIVE) 03/12/20 03/13/20 03/13/20 Range/Units 23:35 02:44 05:30 WBC 5.74 (4.23-9.07) K/mm3 RBC 3.88 L (4.63-6.08) M/mm3 Hgb 13.5 L D (13.7-17.5) gm/dl Hct 40.6 (40.1-51.0) % MCV 104.6 H (79.0-92.2) fl MCH 34.8 H (25.7-32.2) pg MCHC 33.3 (32.2-35.5) g/dl RDW Std Deviation 54.2 H (35.1-43.9) fL Plt Count 259 (163-337) K/mm3 MPV 9.9 (9.4-12.3) fl Neut % (Auto) 84.3 H (34.0-67.9) % Lymph % (Auto) 13.6 L (21.8-53.1) % [place] % (Auto) 1.7 L (5.3-12.2) % Eos % (Auto) 0 L (0.8-7.0) Baso % (Auto) 0.2 (0.1-1.2) % Neut # (Auto) 4.84 (1.78-5.38) K/mm3 Lymph # (Auto) 0.78 L (1.32-3.57) K/mm3 [place] # (Auto) 0.10 L (0.30-0.82) K/mm3 Eos # (Auto) 0.00 L (0.04-0.54) K/mm3 Baso # (Auto) 0.01 (0.01-0.08) K/mm3 PT (9.7-12.0) SECONDS INR Sodium (136-145) mEq/L Potassium (3.5-5.1) mEq/L Chloride (98-107) mEq/L Carbon Dioxide (21-32) mEq/L Anion Gap (5-15) BUN (7-18) mg/dL Creatinine (0.7-1.3) mg/dL Est Cr Clr Drug Dosing mL/min Estimated GFR (MDRD) (>60) mL/min BUN/Creatinine Ratio (14-18) Glucose (80-115) mg/dL Lactic Acid 3.0 H* 1.6 (0.4-2.0) mmol/L Calcium (8.5-10.1) mg/dL Magnesium (1.8-2.4) mg/dl Total Bilirubin (0.2-1.0) mg/dL AST (15-37) U/L ALT (16-63) U/L Alkaline Phosphatase (46-116) U/L Troponin I (0.00-0.056) ng/mL C-Reactive Protein (<1.0) mg/dL Total Protein (6.4-8.2) g/dl Albumin (3.4-5.0) g/dl Globulin gm/dL Albumin/Globulin Ratio (1-2) Urine Color (Yellow) Urine Appearance (Clear) Urine pH (5.0-8.0) Ur Specific [place] (1.005-1.030) Urine Protein (Negative) Urine Glucose (UA) (Negative) Urine Ketones (Negative) Urine Occult Blood (Negative) Urine Nitrite (Negative) Urine Bilirubin (Negative) Urine Urobilinogen (0.2-1.0) Ur Leukocyte Esterase (Negative) U Hyaline Cast (Auto) (0-5) /lpf Urine RBC (0-5) /hpf Urine WBC (0-5) /hpf Ur Squamous Epith Cells (0-5) /hpf Uric Acid Crystals (NONE) Urine Bacteria (FEW) /hpf Urine Mucus (FEW) /hpf Ethyl Alcohol (0.00) gm% SARS-CoV-2 RNA (ELIZABETH) (NEGATIVE) 03/13/20 Range/Units 05:30 WBC (4.23-9.07) K/mm3 RBC (4.63-6.08) M/mm3 Hgb (13.7-17.5) gm/dl Hct (40.1-51.0) % MCV (79.0-92.2) fl MCH (25.7-32.2) pg MCHC (32.2-35.5) g/dl RDW Std Deviation (35.1-43.9) fL Plt Count (163-337) K/mm3 MPV (9.4-12.3) fl Neut % (Auto) (34.0-67.9) % Lymph % (Auto) (21.8-53.1) % [place] % (Auto) (5.3-12.2) % Eos % (Auto) (0.8-7.0) Baso % (Auto) (0.1-1.2) % Neut # (Auto) (1.78-5.38) K/mm3 Lymph # (Auto) (1.32-3.57) K/mm3 [place] # (Auto) (0.30-0.82) K/mm3 Eos # (Auto) (0.04-0.54) K/mm3 Baso # (Auto) (0.01-0.08) K/mm3 PT (9.7-12.0) SECONDS INR Sodium 140 (136-145) mEq/L Potassium 4.6 (3.5-5.1) mEq/L Chloride 104 (98-107) mEq/L Carbon Dioxide 24 (21-32) mEq/L Anion Gap 16.6 H (5-15) BUN 49 H (7-18) mg/dL Creatinine 1.7 H (0.7-1.3) mg/dL Est Cr Clr Drug Dosing 41.75 mL/min Estimated GFR (MDRD) 40 (>60) mL/min BUN/Creatinine Ratio 28.8 H (14-18) Glucose 168 H (80-115) mg/dL Lactic Acid (0.4-2.0) mmol/L Calcium 7.9 L (8.5-10.1) mg/dL Magnesium 1.6 L (1.8-2.4) mg/dl Total Bilirubin 0.9 (0.2-1.0) mg/dL AST 89 H (15-37) U/L ALT 69 H (16-63) U/L Alkaline Phosphatase 128 H (46-116) U/L Troponin I (0.00-0.056) ng/mL C-Reactive Protein (<1.0) mg/dL Total Protein 6.7 (6.4-8.2) g/dl Albumin 3.2 L (3.4-5.0) g/dl Globulin 3.5 gm/dL Albumin/Globulin Ratio 0.9 L (1-2) Urine Color (Yellow) Urine Appearance (Clear) Urine pH (5.0-8.0) Ur Specific [place] (1.005-1.030) Urine Protein (Negative) Urine Glucose (UA) (Negative) Urine Ketones (Negative) Urine Occult Blood (Negative) Urine Nitrite (Negative) Urine Bilirubin (Negative) Urine Urobilinogen (0.2-1.0) Ur Leukocyte Esterase (Negative) U Hyaline Cast (Auto) (0-5) /lpf Urine RBC (0-5) /hpf Urine WBC (0-5) /hpf Ur Squamous Epith Cells (0-5) /hpf Uric Acid Crystals (NONE) Urine Bacteria (FEW) /hpf Urine Mucus (FEW) /hpf Ethyl Alcohol (0.00) gm% SARS-CoV-2 RNA (ELIZABETH) (NEGATIVE) Med Orders - Current: Current Medications Acetaminophen (Tylenol) 650 mg PO Q4H PRN PRN Reason: Pain (Mild 1-3)/fever Albuterol/Ipratropium (Duoneb 3.0-0.5 Mg/3 Ml) 3 ml NEB Q4H PRN PRN Reason: Shortness Of Breath/wheezing Docusate Sodium (Colace) 100 mg PO BID PRN PRN Reason: Constipation Last Admin: 03/12/20 17:48 Dose: 100 mg Documented by: Azithromycin 500 mg/ Sodium (Chloride) 250 mls @ 250 mls/hr IV Q24H [facility] Last Admin: 03/12/20 17:45 Dose: 250 mls/hr Documented by: Sodium Chloride (Normal Saline) 1,000 mls @ 125 mls/hr IV ASDIRECTED [facility] Last Admin: 03/13/20 02:50 Dose: 125 mls/hr Documented by: Lorazepam (Ativan) 0 mg IVPUSH Q4H PRN; Protocol PRN Reason: Withdrawal Symptoms Last Admin: 03/13/20 05:25 Dose: 1 mg Documented by: Miscellaneous Information (Remove Patch) 0 ea TRDERM DAILY [facility] Nicotine (Habitrol) 21 mg TRDERM DAILY [facility] Last Admin: 03/12/20 17:49 Dose: 21 mg Documented by: Ondansetron HCl (Zofran Odt) 4 mg PO Q6H PRN PRN Reason: nausea, able to take PO Oxycodone HCl (Oxycodone) 5 mg PO Q4H PRN PRN Reason: Pain (moderate 4-6) Prednisone (Prednisone) 40 mg PO DAILY [facility] Stop: 03/14/20 09:01 Last Admin: 03/12/20 17:48 Dose: 40 mg Documented by: Sodium Chloride (Saline Flush) 10 ml FLUSH ASDIRECTED PRN PRN Reason: Keep Vein Open Last Admin: 03/12/20 13:11 Dose: 10 ml Documented by: Trazodone HCl (Trazodone) 25 mg PO BEDTIME [facility] Last Admin: 03/12/20 22:02 Dose: 25 mg Documented by: Discontinued Medications Albuterol (Proventil Hfa) 0 gm INH ONETIME ONE Stop: 03/12/20 13:04 Last Admin: 03/12/20 13:22 Dose: 2 puff Documented by: Ceftriaxone Sodium 2 gm/ (Sodium Chloride) 100 mls @ 200 mls/hr IV ONETIME ONE Stop: 03/12/20 15:20 Last Admin: 03/12/20 15:15 Dose: 200 mls/hr Documented by: Lactated Ringer's (Ringers, Lactated) 1,000 mls @ 1,000 mls/hr IV ASDIRECTED [facility] Stop: 03/14/20 15:59 Last Admin: 03/12/20 15:14 Dose: 1,000 mls/hr Documented by: Sodium Chloride (Normal Saline) 1,000 mls @ 75 mls/hr IV ASDIRECTED [facility] Methylprednisolone Sodium Succinate (Solu-Medrol) 125 mg IVPUSH ONETIME ONE Stop: 03/12/20 13:05 Last Admin: 03/12/20 13:10 Dose: 125 mg Documented by: - Exam Quality Assessment: Supplemental Oxygen, DVT Prophylaxis General: Alert, Oriented, Cooperative, No Acute Distress HEENT: Pupils Equal, Pupils Reactive, EOMI, Mucous Membr. Moist/[place] Neck: Supple, Trachea Midline Lungs: Decreased Breath Sounds, Crackles (Widely scattered) Cardiovascular: Regular Rate, Irregular Rhythm GI/Abdominal Exam: Normal Bowel Sounds, Soft, Non-Tender, No Distention (Male) Exam: Deferred Back Exam: Normal Inspection, Full Range of Motion Extremities: Normal Inspection, No Pedal Edema Skin: Warm, Dry, Intact Neurological: No New Focal Deficit, Other (Significant tremors of hands) Psy/Mental Status: Alert, Normal Affect, Normal Mood Sepsis Event Note - Evaluation Sepsis Screening Result: No Definite Risk - Focused Exam Vital Signs: Vital Signs Temp Pulse Resp BP Pulse Ox 03/13/20 07:21 36.4 C 106 H 16 102/72 96 03/12/20 23:02 36.4 C 88 16 125/83 95 - Problem List & Annotations (1) Acute respiratory failure SNOMED Code(s): 81027585 Code(s): J96.00 - ACUTE RESPIRATORY FAILURE, UNSP W HYPOXIA OR HYPERCAPNIA Status: Acute Priority: High Current Visit: Yes Qualifiers: Respiratory failure complication: hypoxia Qualified Code(s): J96.01 - Acute respiratory failure with hypoxia (2) Tobacco dependence SNOMED Code(s): 19084739 Code(s): F17.200 - NICOTINE DEPENDENCE, UNSPECIFIED, UNCOMPLICATED Status: Chronic Priority: High Current Visit: Yes (3) Alcohol intoxication SNOMED Code(s): 11837321 Code(s): F10.929 - ALCOHOL USE, UNSPECIFIED WITH INTOXICATION, UNSPECIFIED Status: Chronic Priority: High Current Visit: Yes Qualifiers: Complication of substance-induced condition: uncomplicated Qualified Code(s): F10.920 - Alcohol use, unspecified with intoxication, uncomplicated (4) COPD exacerbation SNOMED Code(s): 087242589 Code(s): J44.1 - CHRONIC OBSTRUCTIVE PULMONARY DISEASE W (ACUTE) EXACERBATION Status: Chronic Priority: High Current Visit: Yes (5) Chronic a-fib SNOMED Code(s): 096229908 Code(s): I48.20 - CHRONIC ATRIAL FIBRILLATION, UNSPECIFIED Status: Chronic Priority: Medium Current Visit: Yes - Problem List Review Problem List Initiated/Reviewed/Updated: Yes - My Orders Last 24 Hours: My Active Orders 03/12/20 15:57 Up With Assistance [RC] ASDIRECTED Acetaminophen [TylenoL] 650 mg PO Q4H PRN Albuterol/Ipratropium [DuoNeb 3.0-0.5 MG/3 ML] 3 ml NEB Q4H PRN Docusate Sodium [Colace] 100 mg PO BID PRN Ondansetron [Zofran ODT] 4 mg PO Q6H PRN oxyCODONE 5 mg PO Q4H PRN Resuscitation Status Routine 03/12/20 16:04 Patient Status [ADT] Routine Oxygen Therapy [RC] PRN VTE/DVT Education [RC] PER UNIT ROUTINE Vital Signs [RC] Q4H 03/12/20 16:08 RT Aerosol Therapy [RC] ASDIRECTED 03/12/20 16:30 Nicotine [Habitrol] 21 mg TRDERM DAILY 03/12/20 Dinner Heart Healthy Diet [DIET] Azithromycin [Zithromax] 500 mg Sodium Chloride 0.9% [Normal Saline (AdvBag)] 250 ml IV Q24H predniSONE 40 mg PO DAILY 03/12/20 17:17 CIWAA Assessment [RC] Q4H 03/12/20 17:18 LORazepam [Ativan] See Protocol IVPUSH Q4H PRN 03/12/20 18:30 Sodium Chloride 0.9% [Normal Saline] 1,000 ml IV ASDIRECTED 03/12/20 21:00 traZODone 25 mg PO BEDTIME 03/13/20 09:00 Remove Patch 0 ea TRDERM DAILY - Assessment Assessment:: The patient is a 69-year-old gentleman who had been admitted secondary to syncopal episode likely secondary to hypoxic event. The patient has been treated as COPD exacerbation and he has improved today. The patient has been breathing better but we will keep oxygen to help keep his saturations around 92%. The patient has been encouraged to ambulate. He has been strongly counseled with regards to smoking cessation and he will have nicotine patches upon discharge. Patient also has been counseled with regards to alcohol consumption. The patient will continue on his oral steroids as well as IV azithromycin 500 mg daily. Nebulizer treatments will continue every 4 hours per RT to help keep his breathing better. I have ordered repeat laboratory examinations in the morning. The patient will likely be appropriate for kathleen wilcox in 1 to 2 days with a recommendation to follow-up with his primary care physician for PFT to ascertain the degree of damage to his lungs from smoking.
[2020-03-13] MEDS: predniSONE 20 MG Tab PO SCH (08:53)
[2020-03-13] MEDS: Nicotine 21 MG/24 Hr Patch TRDERM SCH (08:55)
[2020-03-13] MEDS: Albuterol/Ipratropium 3.0-0.5 MG/3 ML Neb Soln NEB PRN (10:09)
[2020-03-13] MEDS: ATENOLOL 100 MG PO SCH (11:42)
[2020-03-13] MEDS: Apixaban 5 MG Tab **PTOM PO SCH ×2 (11:42→20:45)
[2020-03-13] MEDS: LISINOPRIL 5 MG PO SCH (11:43)
[2020-03-13] MEDS: Hydrochlorothiazide 25 MG Tab **PTOM PO SCH (11:43)
[2020-03-13] MEDS ORDERED: Magnesium Sulfate/Water 2 GM/50 ML BAG IV ONE (14:54)
[2020-03-13] MEDS: Nystatin Topical Powder 15 GM Bottle TOP SCH ×2 (15:12→20:45)
[2020-03-13] MEDS: Azithromycin 500 MG in Sodium Chloride 0.9% 250 ML IV SCH (17:21)
[2020-03-13] MEDS: Benzonatate 100 MG Cap PO SCH ×2 (17:23→20:43)
[2020-03-13] MEDS: traZODone 50 MG Tab PO SCH (20:44)
--- NOTE | 2020-03-14 07:56 | PCM.PN ---
- General Info Date of Service: 03/14/20 Admission Dx/Problem (Free Text): Admission Diagnosis/Problem Admission Diagnosis/Problem COPD, Moderate chronic obstructive pulmonary disease Subjective Update: The patient is a 69-year-old gentleman who had been admitted from the emergency department to acute hospitalization the result of a fall and low oxygen saturation. The patient does not remember the fall. It should be noted that the patient is a heavy cigarette smoker and also had alcohol consumption prior to the presentation in the ER. Today the patient has denied any pain. He has been ambulating with a walker. He has no other complaints today. Patient has been tolerating his diet. The patient says that he has had shakes and tremors for many years. Functional Status: Reports: Pain Controlled, Tolerating Diet - Review of Systems General: Reports: No Symptoms HEENT: Reports: No Symptoms Pulmonary: Reports: No Symptoms Cardiovascular: Reports: No Symptoms Gastrointestinal: Reports: No Symptoms Genitourinary: Reports: No Symptoms Musculoskeletal: Reports: No Symptoms Skin: Reports: No Symptoms Neurological: Reports: No Symptoms Psychiatric: Reports: No Symptoms - Patient Data Vitals - Most Recent: Last Vital Signs Temp 36.4 C 03/14/20 05:06 Pulse 95 03/14/20 05:06 Resp 18 03/14/20 05:06 BP 117/74 03/14/20 05:06 Pulse Ox 98 03/14/20 05:06 Weight - Most Recent: 82.282 kg I&O - Last 24 Hours: Intake & Output 03/13/20 03/14/20 03/14/20 22:59 06:59 14:59 Intake Total 2241 1860 Output Total 550 751 Balance 1691 1109 Lab Results Last 24 Hours: Laboratory Results - last 24 hr 03/14/20 03/14/20 Range/Units 05:03 05:03 WBC 9.37 H (4.23-9.07) K/mm3 RBC 3.26 L (4.63-6.08) M/mm3 Hgb 11.3 L D (13.7-17.5) gm/dl Hct 34.6 L (40.1-51.0) % MCV 106.1 H (79.0-92.2) fl MCH 34.7 H (25.7-32.2) pg MCHC 32.7 (32.2-35.5) g/dl RDW Std Deviation 54.6 H (35.1-43.9) fL Plt Count 222 (163-337) K/mm3 MPV 9.5 (9.4-12.3) fl Neut % (Auto) 81.9 H (34.0-67.9) % Lymph % (Auto) 10.2 L (21.8-53.1) % [place] % (Auto) 7.7 (5.3-12.2) % Eos % (Auto) 0 L (0.8-7.0) Baso % (Auto) 0.0 L (0.1-1.2) % Neut # (Auto) 7.67 H (1.78-5.38) K/mm3 Lymph # (Auto) 0.96 L (1.32-3.57) K/mm3 [place] # (Auto) 0.72 (0.30-0.82) K/mm3 Eos # (Auto) 0.00 L (0.04-0.54) K/mm3 Baso # (Auto) 0.00 L (0.01-0.08) K/mm3 Manual Slide Review Abnormal smear Sodium 140 (136-145) mEq/L Potassium 4.3 (3.5-5.1) mEq/L Chloride 108 H (98-107) mEq/L Carbon Dioxide 26 (21-32) mEq/L Anion Gap 10.3 (5-15) BUN 41 H (7-18) mg/dL Creatinine 1.2 (0.7-1.3) mg/dL Est Cr Clr Drug Dosing 59.14 mL/min Estimated GFR (MDRD) 60 (>60) mL/min BUN/Creatinine Ratio 34.2 H (14-18) Glucose 143 H (80-115) mg/dL Calcium 7.5 L (8.5-10.1) mg/dL Magnesium 2.2 (1.8-2.4) mg/dl Total Bilirubin 0.8 (0.2-1.0) mg/dL AST 56 H (15-37) U/L ALT 48 (16-63) U/L Alkaline Phosphatase 95 (46-116) U/L Total Protein 5.5 L (6.4-8.2) g/dl Albumin 2.7 L (3.4-5.0) g/dl Globulin 2.8 gm/dL Albumin/Globulin Ratio 1.0 (1-2) [place] Results Last 24 Hours: Microbiology 03/12/20 13:40 Aerobic Blood Culture - Preliminary Blood - Venous - Lab Draw NO GROWTH AFTER 1 DAY Anaerobic Blood Culture - Preliminary NO GROWTH AFTER 1 DAY 03/12/20 13:30 Aerobic Blood Culture - Preliminary Blood - Venous NO GROWTH AFTER 1 DAY Anaerobic Blood Culture - Preliminary NO GROWTH AFTER 1 DAY Med Orders - Current: Current Medications Acetaminophen (Tylenol) 650 mg PO Q4H PRN PRN Reason: Pain (Mild 1-3)/fever Albuterol/Ipratropium (Duoneb 3.0-0.5 Mg/3 Ml) 3 ml NEB Q4H PRN PRN Reason: Shortness Of Breath/wheezing Last Admin: 03/13/20 10:09 Dose: 3 ml Documented by: Apixaban (Eliquis) 5 mg PO BID [facility] Last Admin: 03/13/20 20:45 Dose: 5 mg Documented by: Benzonatate (Tessalon Perles) 100 mg PO TID [facility] Last Admin: 03/13/20 20:43 Dose: 100 mg Documented by: Docusate Sodium (Colace) 100 mg PO BID PRN PRN Reason: Constipation Last Admin: 03/12/20 17:48 Dose: 100 mg Documented by: Folic Acid (Folic Acid) 1 mg PO DAILY [facility] Hydrochlorothiazide (Hydrochlorothiazide) 12.5 mg PO DAILY [facility] Last Admin: 03/13/20 11:43 Dose: Not Given Documented by: Azithromycin 500 mg/ Sodium (Chloride) 250 mls @ 250 mls/hr IV Q24H [facility] Last Admin: 03/13/20 17:21 Dose: 250 mls/hr Documented by: Lisinopril (Prinivil) 5 mg PO DAILY [facility] Last Admin: 03/13/20 11:43 Dose: Not Given Documented by: Lorazepam (Ativan) 0 mg IVPUSH Q4H PRN; Protocol PRN Reason: Withdrawal Symptoms Last Admin: 03/13/20 09:33 Dose: 1 mg Documented by: Miscellaneous Information (Remove Patch) 0 ea TRDERM DAILY [facility] Last Admin: 03/13/20 08:59 Dose: 1 ea Documented by: Nicotine (Habitrol) 21 mg TRDERM DAILY [facility] Last Admin: 03/13/20 08:55 Dose: 21 mg Documented by: Atenolol 100 Mg (Ptom) 0 mg PO DAILY [facility] Last Admin: 03/13/20 11:42 Dose: Not Given Documented by: Nystatin (Nystop) 0 gm TOP BID [facility] Last Admin: 03/13/20 20:45 Dose: 1 applic Documented by: Ondansetron HCl (Zofran Odt) 4 mg PO Q6H PRN PRN Reason: nausea, able to take PO Oxycodone HCl (Oxycodone) 5 mg PO Q4H PRN PRN Reason: Pain (moderate 4-6) Pantoprazole Sodium (Protonix Iv) 40 mg IVPUSH Q12H [facility] Prednisone (Prednisone) 40 mg PO DAILY [facility] Stop: 03/14/20 09:01 Last Admin: 03/13/20 08:53 Dose: 40 mg Documented by: Sodium Chloride (Saline Flush) 10 ml FLUSH ASDIRECTED PRN PRN Reason: Keep Vein Open Last Admin: 03/12/20 13:11 Dose: 10 ml Documented by: Thiamine HCl (Vitamin B-1) 100 mg PO BEDTIME [facility] Trazodone HCl (Trazodone) 25 mg PO BEDTIME [facility] Last Admin: 03/13/20 20:44 Dose: 25 mg Documented by: Discontinued Medications Albuterol (Proventil Hfa) 0 gm INH ONETIME ONE Stop: 03/12/20 13:04 Last Admin: 03/12/20 13:22 Dose: 2 puff Documented by: Ceftriaxone Sodium 2 gm/ (Sodium Chloride) 100 mls @ 200 mls/hr IV ONETIME ONE Stop: 03/12/20 15:20 Last Admin: 03/12/20 15:15 Dose: 200 mls/hr Documented by: Lactated Ringer's (Ringers, Lactated) 1,000 mls @ 1,000 mls/hr IV ASDIRECTED [facility] Stop: 03/14/20 15:59 Last Admin: 03/12/20 15:14 Dose: 1,000 mls/hr Documented by: Sodium Chloride (Normal Saline) 1,000 mls @ 75 mls/hr IV ASDIRECTED [facility] Sodium Chloride (Normal Saline) 1,000 mls @ 125 mls/hr IV ASDIRECTED [facility] Last Admin: 03/13/20 18:35 Dose: 125 mls/hr Documented by: Magnesium Sulfate (Magnesium Sulfate In Water Premix) 2 gm in 50 mls @ 25 mls/hr IV ONETIME ONE Stop: 03/13/20 16:53 Last Admin: 03/13/20 15:13 Dose: 25 mls/hr Documented by: Methylprednisolone Sodium Succinate (Solu-Medrol) 125 mg IVPUSH ONETIME ONE Stop: 03/12/20 13:05 Last Admin: 03/12/20 13:10 Dose: 125 mg Documented by: - Exam Quality Assessment: DVT Prophylaxis. No: Supplemental Oxygen General: Alert, Oriented, Cooperative HEENT: Pupils Equal, Pupils Reactive, EOMI, Mucous Membr. Moist/[place] Neck: Supple, Trachea Midline Lungs: Crackles (Widely scattered), Wheezing Cardiovascular: Regular Rate, Irregular Rhythm GI/Abdominal Exam: Normal Bowel Sounds, Soft, No Distention (Male) Exam: Deferred Back Exam: Normal Inspection, Full Range of Motion Extremities: Normal Inspection, No Pedal Edema Skin: Warm, Dry, Intact Neurological: No New Focal Deficit, Normal Gait (Currently using front wheel walker) Psy/Mental Status: Alert, Normal Affect, Normal Mood Sepsis Event Note - Evaluation Sepsis Screening Result: No Definite Risk - Focused Exam Vital Signs: Vital Signs Temp Pulse Resp BP Pulse Ox 03/14/20 05:06 36.4 C 95 18 117/74 98 03/13/20 23:32 36.7 C 98 16 120/76 94 L 03/13/20 20:42 104 H 97 - Problem List & Annotations (1) Acute respiratory failure SNOMED Code(s): 83426709 Code(s): J96.00 - ACUTE RESPIRATORY FAILURE, UNSP W HYPOXIA OR HYPERCAPNIA Status: Acute Priority: High Current Visit: Yes Qualifiers: Respiratory failure complication: hypoxia Qualified Code(s): J96.01 - Acute respiratory failure with hypoxia (2) Tobacco dependence SNOMED Code(s): 40546507 Code(s): F17.200 - NICOTINE DEPENDENCE, UNSPECIFIED, UNCOMPLICATED Status: Chronic Priority: High Current Visit: Yes (3) Alcohol intoxication SNOMED Code(s): 73655975 Code(s): F10.929 - ALCOHOL USE, UNSPECIFIED WITH INTOXICATION, UNSPECIFIED Status: Chronic Priority: High Current Visit: Yes Qualifiers: Complication of substance-induced condition: uncomplicated Qualified Code(s): F10.920 - Alcohol use, unspecified with intoxication, uncomplicated (4) COPD exacerbation SNOMED Code(s): 157057061 Code(s): J44.1 - CHRONIC OBSTRUCTIVE PULMONARY DISEASE W (ACUTE) EXACERBATION Status: Chronic Priority: High Current Visit: Yes (5) Chronic a-fib SNOMED Code(s): 640902965 Code(s): I48.20 - CHRONIC ATRIAL FIBRILLATION, UNSPECIFIED Status: Chronic Priority: Medium Current Visit: Yes - Problem List Review Problem List Initiated/Reviewed/Updated: Yes - My Orders Last 24 Hours: My Active Orders 03/13/20 09:00 Remove Patch 0 ea TRDERM DAILY 03/13/20 11:00 Apixaban [Eliquis] 5 mg PO BID atenoloL [Atenolol] 0 mg PO DAILY hydroCHLOROthiazide 12.5 mg PO DAILY lisinopriL [Prinivil] 5 mg PO DAILY 03/13/20 11:13 Consult to Physical Therapy [PT Evaluation and Treatment] [CONS] Routine 03/13/20 11:33 Communication Order [RC] DAILY 03/13/20 12:50 Consult to Occupational Therapy [OT Evaluation and Treatment] [CONS] Routine Consult to Physical Therapy [PT Evaluation and Treatment] [CONS] Routine 03/13/20 15:00 Nystatin [Nystop] 0 gm TOP BID 03/13/20 16:21 Benzonatate [Tessalon Perles] 100 mg PO TID 03/14/20 08:00 Pantoprazole [ProTONIX IV] 40 mg IVPUSH Q12H 03/14/20 09:00 Folic Acid 1 mg PO DAILY 03/14/20 21:00 Thiamine [Vitamin B-1] 100 mg PO BEDTIME - Assessment Assessment:: The patient is a 69-year-old gentleman who had been admitted secondary to syncopal episode likely secondary to hypoxic event. The patient has been treated as COPD exacerbation and he has improved today. The patient has been breathing better but we will keep oxygen to help keep his saturations around 92%. The patient has been encouraged to ambulate. He has been strongly counse led with regards to smoking cessation and he will have nicotine patches upon discharge. Patient also has been counseled with regards to alcohol consumption. The patient will continue on his oral steroids as well as IV azithromycin 500 mg daily. Nebulizer treatments will continue every 4 hours per RT to help keep his breathing better. I have ordered repeat laboratory examinations in the morning. The patient will likely be appropriate for discharge in 1 to 2 days with a recommendation to follow-up with his primary care physician for PFT to ascertain the degree of damage to his lungs from smoking. 03/14/2020 The patient is a 70-year-old gentleman who is doing better today. He is not on supplemental oxygen. The patient has been treated for COPD exacerbation and this seems to help. The patient's oxygen levels will be monitored and he will continue to have oxygen support as necessary. The patient is currently anticoagulated with Eliquis for his chronic atrial fibrillation. The patient also will have continue nicotine patch for his tobacco dependency. Also because of his history of alcohol use and the tremors alcohol contribution to this cannot be excluded. I have placed patient on thiamine 100 mg p.o. daily and folate 1 mg p.o. daily. The patient's IV fluids have been discontinued as he is on the regular diet as tolerated. The patient has been encouraged to continue ambulation. He should be appropriate for discharge in 1 day to 2 days. Repeat laboratory studies have been ordered. Patient will need to have an outpatient follow-up for a PFT. - Plan Plan:: The patient is a 69-year-old gentleman who has been admitted out of concern for a fall and syncopal episode likely related to the patient's hypoxia. The patient has not been diagnosed with COPD or emphysema however, I believe that it is important to treat this as a COPD exacerbation at this point. Patient's lung examination is consistent with either acute on chronic bronchitis or COPD. The patient will need to have a PFT once he is improved and is discharged. The patient says that he does not have any issues with alcohol withdrawal however I have placed him on CIWA protocol as the patient appears to be anxious at this point. The patient will also be kept on regular diet as tolerated. He will not have DVT prophylaxis as he is currently anticoagulated with the use of Eliquis for his chronic atrial fibrillation. The patient has been encouraged to ambulate. He also has been strongly counseled with regards to smoking cessation and he has been provided nicotine patch. The patient should be appropriate for discharge in 2 to 3 days depending upon his oxygen needs.
[2020-03-14] MEDS: Folic Acid 1 MG Tab PO SCH (08:22)
[2020-03-14] MEDS: predniSONE 20 MG Tab PO SCH (08:22)
[2020-03-14] MEDS: Nicotine 21 MG/24 Hr Patch TRDERM SCH (08:22)
[2020-03-14] MEDS: Benzonatate 100 MG Cap PO SCH ×3 (08:22→20:16)
[2020-03-14] MEDS: Pantoprazole 40 MG Vial IVPUSH SCH ×2 (08:22→20:17)
[2020-03-14] MEDS: Nystatin Topical Powder 15 GM Bottle TOP SCH ×2 (08:23→20:17)
[2020-03-14] MEDS: Apixaban 5 MG Tab **PTOM PO SCH ×2 (08:32→20:30)
[2020-03-14] MEDS: ATENOLOL 100 MG PO SCH (08:32)
[2020-03-14] MEDS: LISINOPRIL 5 MG PO SCH (08:33)
[2020-03-14] MEDS: Hydrochlorothiazide 25 MG Tab **PTOM PO SCH (08:33)
[2020-03-14] MEDS: Albuterol/Ipratropium 3.0-0.5 MG/3 ML Neb Soln NEB PRN (09:22)
[2020-03-14] MEDS: Azithromycin 500 MG in Sodium Chloride 0.9% 250 ML IV SCH (16:13)
[2020-03-14] MEDS: Thiamine 100 MG Tab PO SCH (20:18)
[2020-03-14] MEDS: traZODone 50 MG Tab PO SCH (22:09)
[2020-03-15] MEDS: Benzonatate 100 MG Cap PO SCH ×3 (08:06→20:33)
[2020-03-15] MEDS: Nicotine 21 MG/24 Hr Patch TRDERM SCH (08:07)
[2020-03-15] MEDS: Folic Acid 1 MG Tab PO SCH (08:07)
[2020-03-15] MEDS: Pantoprazole 40 MG Vial IVPUSH SCH ×2 (08:07→20:33)
[2020-03-15] MEDS: Nystatin Topical Powder 15 GM Bottle TOP SCH ×2 (08:08→20:33)
[2020-03-15] MEDS: ATENOLOL 100 MG PO SCH (08:13)
[2020-03-15] MEDS: Apixaban 5 MG Tab **PTOM PO SCH ×2 (08:14→20:33)
[2020-03-15] MEDS: Hydrochlorothiazide 25 MG Tab **PTOM PO SCH (08:14)
[2020-03-15] MEDS: LISINOPRIL 5 MG PO SCH (08:14)
[2020-03-15] MEDS: Albuterol/Ipratropium 3.0-0.5 MG/3 ML Neb Soln NEB PRN (08:46)
[2020-03-15] MEDS: Saccharomyces Boulardii (Probiotic) 250 MG Cap PO SCH (12:14)
--- NOTE | 2020-03-15 12:15 | PCM.PN ---
- General Info Date of Service: 03/15/20 Admission Dx/Problem (Free Text): Admission Diagnosis/Problem Admission Diagnosis/Problem COPD, Moderate chronic obstructive pulmonary disease Subjective Update: The patient is a 69-year-old man who had been admitted due to hypoxia. Patient apparently had a fall. He is a heavy cigarette smoker and also had alcohol consumption prior to his visit to the emergency room. The patient was admitted to acute hospitalization on March 12, 2020. Today the patient says that he is doing great. He is still having tremors. Patient says that his tremors are chronic in nature. He has been doing well without tobacco. The patient also has been tolerating his diet. He has been ambulating. Functional Status: Reports: Pain Controlled, Tolerating Diet - Review of Systems General: Reports: No Symptoms HEENT: Reports: No Symptoms Pulmonary: Reports: No Symptoms Cardiovascular: Reports: No Symptoms Gastrointestinal: Reports: No Symptoms Genitourinary: Reports: No Symptoms Musculoskeletal: Reports: No Symptoms Skin: Reports: No Symptoms Neurological: Reports: Tremors Psychiatric: Reports: No Symptoms - Patient Data Vitals - Most Recent: Last Vital Signs Temp 36.9 C 03/15/20 11:19 Pulse 91 03/15/20 11:19 Resp 16 03/15/20 11:19 BP 139/86 03/15/20 11:19 Pulse Ox 99 03/15/20 11:19 Weight - Most Recent: 81.556 kg I&O - Last 24 Hours: Intake & Output 03/14/20 03/15/20 03/15/20 22:59 06:59 14:59 Intake Total 1175 400 0 Output Total 200 550 Balance 975 -150 0 Lab Results Last 24 Hours: Laboratory Results - last 24 hr 03/15/20 03/15/20 Range/Units 05:24 05:24 WBC 9.92 H (4.23-9.07) K/mm3 RBC 3.32 L (4.63-6.08) M/mm3 Hgb 11.6 L (13.7-17.5) gm/dl Hct 35.7 L (40.1-51.0) % MCV 107.5 H (79.0-92.2) fl MCH 34.9 H (25.7-32.2) pg MCHC 32.5 (32.2-35.5) g/dl RDW Std Deviation 55.6 H (35.1-43.9) fL Plt Count 215 (163-337) K/mm3 MPV 9.9 (9.4-12.3) fl Neut % (Auto) 78.4 H (34.0-67.9) % Lymph % (Auto) 14.8 L (21.8-53.1) % [place] % (Auto) 6.5 (5.3-12.2) % Eos % (Auto) 0 L (0.8-7.0) Baso % (Auto) 0.0 L (0.1-1.2) % Neut # (Auto) 7.78 H (1.78-5.38) K/mm3 Lymph # (Auto) 1.47 (1.32-3.57) K/mm3 [place] # (Auto) 0.64 (0.30-0.82) K/mm3 Eos # (Auto) 0.00 L (0.04-0.54) K/mm3 Baso # (Auto) 0.00 L (0.01-0.08) K/mm3 Manual Slide Review Abnormal smear Sodium 142 (136-145) mEq/L Potassium 4.1 (3.5-5.1) mEq/L Chloride 109 H (98-107) mEq/L Carbon Dioxide 25 (21-32) mEq/L Anion Gap 12.1 (5-15) BUN 36 H (7-18) mg/dL Creatinine 1.1 (0.7-1.3) mg/dL Est Cr Clr Drug Dosing 64.52 mL/min Estimated GFR (MDRD) > 60 (>60) mL/min BUN/Creatinine Ratio 32.7 H (14-18) Glucose 117 H (80-115) mg/dL Calcium 7.8 L (8.5-10.1) mg/dL Magnesium 2.1 (1.8-2.4) mg/dl Total Bilirubin 0.8 (0.2-1.0) mg/dL AST 64 H (15-37) U/L ALT 60 (16-63) U/L Alkaline Phosphatase 91 (46-116) U/L Total Protein 6.0 L (6.4-8.2) g/dl Albumin 2.9 L (3.4-5.0) g/dl Globulin 3.1 gm/dL Albumin/Globulin Ratio 0.9 L (1-2) Zana Results Last 24 Hours: Microbiology 03/12/20 13:40 Aerobic Blood Culture - Preliminary Blood - Venous - Lab Draw NO GROWTH AFTER 2 DAYS Anaerobic Blood Culture - Preliminary NO GROWTH AFTER 2 DAYS 03/12/20 13:30 Aerobic Blood Culture - Preliminary Blood - Venous NO GROWTH AFTER 2 DAYS Anaerobic Blood Culture - Preliminary NO GROWTH AFTER 2 DAYS Med Orders - Current: Current Medications Acetaminophen (Tylenol) 650 mg PO Q4H PRN PRN Reason: Pain (Mild 1-3)/fever Albuterol/Ipratropium (Duoneb 3.0-0.5 Mg/3 Ml) 3 ml NEB Q4H PRN PRN Reason: Shortness Of Breath/wheezing Last Admin: 03/15/20 08:46 Dose: 3 ml Documented by: Apixaban (Eliquis) 5 mg PO BID [facility] Last Admin: 03/15/20 08:14 Dose: 5 mg Documented by: Benzonatate (Tessalon Perles) 100 mg PO TID [facility] Last Admin: 03/15/20 08:06 Dose: 100 mg Documented by: Docusate Sodium (Colace) 100 mg PO BID PRN PRN Reason: Constipation Last Admin: 03/12/20 17:48 Dose: 100 mg Documented by: Folic Acid (Folic Acid) 1 mg PO DAILY [facility] Last Admin: 03/15/20 08:07 Dose: 1 mg Documented by: Hydrochlorothiazide (Hydrochlorothiazide) 12.5 mg PO DAILY [facility] Last Admin: 03/15/20 08:14 Dose: 12.5 mg Documented by: Azithromycin 500 mg/ Sodium (Chloride) 250 mls @ 250 mls/hr IV Q24H [facility] Last Admin: 03/14/20 16:13 Dose: 250 mls/hr Documented by: Lisinopril (Prinivil) 5 mg PO DAILY [facility] Last Admin: 03/15/20 08:14 Dose: 5 mg Documented by: Lorazepam (Ativan) 0 mg IVPUSH Q4H PRN; Protocol PRN Reason: Withdrawal Symptoms Last Admin: 03/13/20 09:33 Dose: 1 mg Documented by: Miscellaneous Information (Remove Patch) 0 ea TRDERM DAILY [facility] Last Admin: 03/15/20 08:08 Dose: 1 ea Documented by: Nicotine (Habitrol) 21 mg TRDERM DAILY [facility] Last Admin: 03/15/20 08:07 Dose: 21 mg Documented by: Atenolol 100 Mg (Ptom) 0 mg PO DAILY [facility] Last Admin: 03/15/20 08:13 Dose: 100 mg Documented by: Nystatin (Nystop) 0 gm TOP BID [facility] Last Admin: 03/15/20 08:08 Dose: 1 applic Documented by: Ondansetron HCl (Zofran Odt) 4 mg PO Q6H PRN PRN Reason: nausea, able to take PO Oxycodone HCl (Oxycodone) 5 mg PO Q4H PRN PRN Reason: Pain (moderate 4-6) Pantoprazole Sodium (Protonix Iv) 40 mg IVPUSH Q12H [facility] Last Admin: 03/15/20 08:07 Dose: 40 mg Documented by: Saccharomyces Boulardii (Florastor) 500 mg PO DAILY [facility] Last Admin: 03/15/20 12:14 Dose: 500 mg Documented by: Sodium Chloride (Saline Flush) 10 ml FLUSH ASDIRECTED PRN PRN Reason: Keep Vein Open Last Admin: 03/12/20 13:11 Dose: 10 ml Documented by: Thiamine HCl (Vitamin B-1) 100 mg PO BEDTIME [facility] Last Admin: 03/14/20 20:18 Dose: 100 mg Documented by: Trazodone HCl (Trazodone) 25 mg PO BEDTIME [facility] Last Admin: 03/14/20 22:09 Dose: 25 mg Documented by: Discontinued Medications Albuterol (Proventil Hfa) 0 gm INH ONETIME ONE Stop: 03/12/20 13:04 Last Admin: 03/12/20 13:22 Dose: 2 puff Documented by: Ceftriaxone Sodium 2 gm/ (Sodium Chloride) 100 mls @ 200 mls/hr IV ONETIME ONE Stop: 03/12/20 15:20 Last Admin: 03/12/20 15:15 Dose: 200 mls/hr Documented by: Lactated Ringer's (Ringers, Lactated) 1,000 mls @ 1,000 mls/hr IV ASDIRECTED [facility] Stop: 03/14/20 15:59 Last Admin: 03/12/20 15:14 Dose: 1,000 mls/hr Documented by: Sodium Chloride (Normal Saline) 1,000 mls @ 75 mls/hr IV ASDIRECTED [facility] Sodium Chloride (Normal Saline) 1,000 mls @ 125 mls/hr IV ASDIRECTED [facility] Last Admin: 03/13/20 18:35 Dose: 125 mls/hr Documented by: Magnesium Sulfate (Magnesium Sulfate In Water Premix) 2 gm in 50 mls @ 25 mls/hr IV ONETIME ONE Stop: 03/13/20 16:53 Last Admin: 03/13/20 15:13 Dose: 25 mls/hr Documented by: Methylprednisolone Sodium Succinate (Solu-Medrol) 125 mg IVPUSH ONETIME ONE Stop: 03/12/20 13:05 Last Admin: 03/12/20 13:10 Dose: 125 mg Documented by: Prednisone (Prednisone) 40 mg PO DAILY [facility] Stop: 03/14/20 09:01 Last Admin: 03/14/20 08:22 Dose: 40 mg Documented by: Saccharomyces Boulardii (Florastor) 500 mg PO DAILY [facility] - Exam Quality Assessment: Supplemental Oxygen, DVT Prophylaxis General: Alert, Oriented, Cooperative, No Acute Distress HEENT: Pupils Equal, Pupils Reactive, EOMI, Mucous Membr. Moist/[place] Neck: Supple, Trachea Midline Lungs: Clear to Auscultation, Normal Respiratory Effort Cardiovascular: Regular Rate, Irregular Rhythm GI/Abdominal Exam: Normal Bowel Sounds, Soft, Non-Tender, No Distention (Male) Exam: Deferred Back Exam: Normal Inspection, Full Range of Motion Extremities: Normal Inspection, Normal Range of Motion, No Pedal Edema Skin: Warm, Dry, Intact Neurological: No New Focal Deficit Psy/Mental Status: Alert, Normal Affect, Normal Mood Sepsis Event Note - Evaluation Sepsis Screening Result: No Definite Risk - Focused Exam Vital Signs: Vital Signs Temp Pulse Resp BP Pulse Ox Pulse Ox 03/15/20 11:19 36.9 C 91 16 139/86 99 03/15/20 08:47 98 03/15/20 08:14 141/94 H 03/15/20 07:15 36.6 C 97 16 141/94 H 97 03/15/20 05:20 36.7 C 58 L 20 138/91 H 97 03/15/20 01:30 36.6 C 99 20 136/94 H 96 - Problem List & Annotations (1) Acute respiratory failure SNOMED Code(s): 99747776 Code(s): J96.00 - ACUTE RESPIRATORY FAILURE, UNSP W HYPOXIA OR HYPERCAPNIA Status: Acute Priority: High Current Visit: Yes Qualifiers: Respiratory failure complication: hypoxia Qualified Code(s): J96.01 - Acute respiratory failure with hypoxia (2) Tobacco dependence SNOMED Code(s): 73973809 Code(s): F17.200 - NICOTINE DEPENDENCE, UNSPECIFIED, UNCOMPLICATED Status: Chronic Priority: High Current Visit: Yes (3) Alcohol intoxication SNOMED Code(s): 07585238 Code(s): F10.929 - ALCOHOL USE, UNSPECIFIED WITH INTOXICATION, UNSPECIFIED Status: Chronic Priority: High Current Visit: Yes Qualifiers: Complication of substance-induced condition: uncomplicated Qualified Code(s): F10.920 - Alcohol use, unspecified with intoxication, uncomplicated (4) COPD exacerbation SNOMED Code(s): 037185233 Code(s): J44.1 - CHRONIC OBSTRUCTIVE PULMONARY DISEASE W (ACUTE) EXACERBATION Status: Chronic Priority: High Current Visit: Yes (5) Chronic a-fib SNOMED Code(s): 288316601 Code(s): I48.20 - CHRONIC ATRIAL FIBRILLATION, UNSPECIFIED Status: Chronic Priority: Medium Current Visit: Yes - Problem List Review Problem List Initiated/Reviewed/Updated: Yes - My Orders Last 24 Hours: My Active Orders 03/14/20 21:00 Thiamine [Vitamin B-1] 100 mg PO BEDTIME 03/15/20 12:06 Saccharomyces Boulardii [Florastor] 500 mg PO DAILY - Assessment Assessment:: The patient is a 69-year-old gentleman who had been admitted secondary to syncopal episode likely secondary to hypoxic event. The patient has been treated as COPD exacerbation and he has improved today. The patient has been breathing better but we will keep oxygen to help keep his saturations around 92%. The patient has been encouraged to ambulate. He has been strongly counseled with regards to smoking cessation and he will have nicotine patches upon discharge. Patient also has been counseled with regards to alcohol consumption. The patient will continue on his oral steroids as well as IV az ithromycin 500 mg daily. Nebulizer treatments will continue every 4 hours per RT to help keep his breathing better. I have ordered repeat laboratory examinations in the morning. The patient will likely be appropriate for discharge in 1 to 2 days with a recommendation to follow-up with his primary care physician for PFT to ascertain the degree of damage to his lungs from smoking. 03/14/2020 The patient is a 70-year-old gentleman who is doing better today. He is not on supplemental oxygen. The patient has been treated for COPD exacerbation and this seems to help. The patient's oxygen levels will be monitored and he will continue to have oxygen support as necessary. The patient is currently anticoagulated with Eliquis for his chronic atrial fibrillation. The patient also will have continue nicotine patch for his tobacco dependency. Also because of his history of alcohol use and the tremors alcohol contribution to this cannot be excluded. I have placed patient on thiamine 100 mg p.o. daily and folate 1 mg p.o. daily. The patient's IV fluids have been discontinued as he is on the regular diet as tolerated. The patient has been encouraged to continue ambulation. He should be appropriate for discharge in 1 day to 2 days. Repeat laboratory studies have been ordered. Patient will need to have an outpatient follow-up for a PFT. 03/15/2020 The patient is a 69-year-old gentleman who is doing again much better today. Using supplemental oxygen only occasionally. The patient will continue to have treatment for COPD exacerbation. He is currently anticoagulated with Eliquis and therefore will not need to have DVT prophylaxis. He has been encouraged to ambulate. The patient has not had any signs or symptoms associated with alcohol withdrawal. The patient will be continued on his thiamine and folate. The patient's renal function has normalized with the use of IV fluids and repeat laboratory studies have been ordered for the morning. He is likely appropriate to be discharged tomorrow. - Plan Plan:: The patient is a 69-year-old gentleman who has been admitted out of concern for a fall and syncopal episode likely related to the patient's hypoxia. The patient has not been diagnosed with COPD or emphysema however, I believe that it is important to treat this as a COPD exacerbation at this point. Patient's lung examination is consistent with either acute on chronic bronchitis or COPD. The patient will need to have a PFT once he is improved and is discharged. The patient says that he does not have any issues with alcohol withdrawal however I have placed him on CIWA protocol as the patient appears to be anxious at this point. The patient will also be kept on regular diet as tolerated. He will not have DVT prophylaxis as he is currently anticoagulated with the use of Eliquis for his chronic atrial fibrillation. The patient has been encouraged to ambul ate. He also has been strongly counseled with regards to smoking cessation and he has been provided nicotine patch. The patient should be appropriate for discharge in 2 to 3 days depending upon his oxygen needs.
[2020-03-15] MEDS: Azithromycin 500 MG in Sodium Chloride 0.9% 250 ML IV SCH (16:32)
[2020-03-15] MEDS: Thiamine 100 MG Tab PO SCH (20:33)
[2020-03-15] MEDS: traZODone 50 MG Tab PO SCH (21:36)
[2020-03-16] MEDS: Pantoprazole 40 MG Vial IVPUSH SCH (08:44)
[2020-03-16] MEDS: Folic Acid 1 MG Tab PO SCH (08:45)
[2020-03-16] MEDS: Nicotine 21 MG/24 Hr Patch TRDERM SCH (08:45)
[2020-03-16] MEDS: Benzonatate 100 MG Cap PO SCH (08:45)
[2020-03-16] MEDS: Saccharomyces Boulardii (Probiotic) 250 MG Cap PO SCH (08:45)
[2020-03-16] MEDS: Nystatin Topical Powder 15 GM Bottle TOP SCH (08:47)
[2020-03-16] MEDS: Apixaban 5 MG Tab **PTOM PO SCH (08:48)
[2020-03-16] MEDS: ATENOLOL 100 MG PO SCH (08:48)
[2020-03-16] MEDS: LISINOPRIL 5 MG PO SCH (08:49)
[2020-03-16] MEDS: Hydrochlorothiazide 25 MG Tab **PTOM PO SCH (08:49)
--- NOTE | 2020-03-16 08:50 | PCM.DCSUM1 ---
Discharge Summary - Hospital Course HPI Initial Comments: The patient is a 69-year-old gentleman who had presented to the emergency department after a fall and low oxygen saturations. The patient was also noted to have low oxygen saturations. He does not remember what happened with his fall. The patient is a heavy smoker and has not been diagnosed with COPD or emphysema yet. Patient also had alcohol consumption before presentation to the emergency department. The patient has denied any pain. He does not have any withdrawal symptoms. The patient has had that he would like to have a nicotine patch. The patient also has denied any fever or chills. He has had no nausea or vomiting. The patient's home medications that include Eliquis 5 mg p.o. twice daily, atenolol 100 mg p.o. daily, hydrochlorothiazide 12.5 mg daily and lisinopril 5 mg p.o. daily. The patient says that he is not sure why he has bee n taking Eliquis. The patient has no other complaints at this time. Diagnosis: Stroke: No - Discharge Data Discharge Date: 03/16/20 (Admit date:03/12/2020) Discharge Disposition: Home, Self-Care 01 Condition: Good - Referral to Home Health Primary Care Physician: Matteo Kaur Jr, MD - Discharge Diagnosis/Problem(s) (1) Acute respiratory failure SNOMED Code(s): 14718440 ICD Code: J96.00 - ACUTE RESPIRATORY FAILURE, UNSP W HYPOXIA OR HYPERCAPNIA Status: Resolved Priority: High Qualifiers: Respiratory failure complication: hypoxia Qualified Code(s): J96.01 - Acute respiratory failure with hypoxia (2) Alcohol intoxication SNOMED Code(s): 41013934 ICD Code: F10.929 - ALCOHOL USE, UNSPECIFIED WITH INTOXICATION, UNSPECIFIED Status: Chronic Priority: High Qualifiers: Complication of substance-induced condition: uncomplicated Qualified Code(s): F10.920 - Alcohol use, unspecified with intoxication, uncomplicated (3) COPD exacerbation SNOMED Code(s): 305417993 ICD Code: J44.1 - CHRONIC OBSTRUCTIVE PULMONARY DISEASE W (ACUTE) EXACERBATION Status: Resolved Priority: High (4) Chronic a-fib SNOMED Code(s): 587679626 ICD Code: I48.20 - CHRONIC ATRIAL FIBRILLATION, UNSPECIFIED Status: Chronic Priority: Medium (5) Tobacco dependence SNOMED Code(s): 46559024 ICD Code: F17.200 - NICOTINE DEPENDENCE, UNSPECIFIED, UNCOMPLICATED Status: Chronic Priority: High (6) Dehydration SNOMED Code(s): 14538841 ICD Code: E86.0 - DEHYDRATION Status: Resolved Priority: High (7) Elevated lactic acid level SNOMED Code(s): 3858007 ICD Code: R79.89 - OTHER SPECIFIED ABNORMAL FINDINGS OF BLOOD CHEMISTRY Status: Resolved Priority: High (8) Hypoxia SNOMED Code(s): 639752328 ICD Code: R09.02 - HYPOXEMIA Status: Resolved Priority: High (9) Renal insufficiency, mild SNOMED Code(s): 388942397 ICD Code: N28.9 - DISORDER OF KIDNEY AND URETER, UNSPECIFIED Status: Resolved Priority: High (10) Suspected chronic obstructive pulmonary disease based on initial evaluation SNOMED Code(s): 325706105 ICD Code: J44.9 - CHRONIC OBSTRUCTIVE PULMONARY DISEASE, UNSPECIFIED Status: Suspected Priority: High - Patient Summary/Data Consults: Consultations 03/13/20 11:13 Consult to Physical Therapy [PT Evaluation and Treatment] [CONS] Routine 03/13/20 12:50 Consult to Occupational Therapy [OT Evaluation and Treatment] [CONS] Routine Consult to Physical Therapy [PT Evaluation and Treatment] [CONS] Routine Labs Pending at D/C: None Recommended Follow-up Testing/Procedures: Follow-up with primary care provider within 7-10 days of discharge. Recommend outpatient PFT after discharge. This should be scheduled by PCP. Recommend outpatient podiatry follow-up on discharge. Hospital Course: 03/12/2020 - day of admission The patient is a 69-year-old gentleman who had been admitted secondary to syncopal episode likely secondary to hypoxic event. The patient has been treated as COPD exacerbation and he has improved today. The patient has been breathing better but we will keep oxygen to help keep his saturations around 92%. The patient has been encouraged to ambulate. He has been strongly counseled with regards to smoking cessation and he will have nicotine patches upon discharge. Patient also has been counseled with regards to alcohol consumption. The patient will continue on his oral steroids as well as IV azithromycin 500 mg daily. Nebulizer treatments will continue every 4 hours per RT to help keep his breathing better. I have ordered repeat laboratory examinations in the morning. The patient will likely be appropriate for discharge in 1 to 2 days with a recommendation to follow-up with his primary care physician for PFT to ascertain the degree of damage to his lungs from smoking. 03/14/2020 The patient is a 69-year-old gentleman who is doing better today. He is not on supplemental oxygen. The patient has been treated for COPD exacerbation and this seems to help. The patient's oxygen levels will be monitored and he will continue to have oxygen support as necessary. The patient is currently anticoagulated with Eliquis for his chronic atrial fibrillation. The patient also will have continue nicotine patch for his tobacco dependency. Also because of his history of alcohol use and the tremors alcohol contribution to this cannot be excluded. I have placed patient on thiamine 100 mg p.o. daily and fo late 1 mg p.o. daily. The patient's IV fluids have been discontinued as he is on the regular diet as tolerated. The patient has been encouraged to continue ambulation. He should be appropriate for discharge in 1 day to 2 days. Repeat laboratory studies have been ordered. Patient will need to have an outpatient follow-up for a PFT. 03/15/2020 The patient is a 69-year-old gentleman who is doing again much better today. Using supplemental oxygen only occasionally. The patient will continue to have treatment for COPD exacerbation. He is currently anticoagulated with Eliquis and therefore will not need to have DVT prophylaxis. He has been encouraged to ambulate. The patient has not had any signs or symptoms associated with alcohol withdrawal. The patient will be continued on his thiamine and folate. The patient's renal function has normalized with the use of IV fluids and repeat laboratory studies have been ordered for the morning. He is likely appropriate to be discharged tomorrow. 03/16/2020 Patient was admitted to the hospital due to a suspected COPD exacerbation. Patient has not had a formal COPD diagnosis however he is a longtime smoker. Patient is also noted to consume quite a bit of alcohol so he was started on 1 mg daily folic acid and 100 mg p.o. at bedtime thiamine. Blood alcohol in the ED was 0.3. He was given 500 mg IV azithromycin and given 1 dose of 2 g Rocephin in the ER. Ultimately he had 5 days of azithromycin treatment. As noted chest x-ray was clear. He was requiring 2 L of oxygen on admission and this was able to be discontinued prior to discharge. He was given p.o. steroids and these were discontinued prior to discharge as well as the patient's lung sounds improved. He was feeling quite good prior to discharge. See was had been obtained with the highest being 5. Patient reports a baseline tremor and this was the reason for his elevated CIWA score. He was noted to have a rash to his groin and he was receiving nystatin powder for this. This will be continued at discharge twice daily. We discussed his smoking status and how it is negatively affecting his lungs. Patient reported that he would be interested in tobacco cessation assistance at discharge. Prescription was sent for 21 mg daily nicotine patches. He was instructed to follow-up with his primary care provider or contact one of the provided resources such as [facility] or [facility] tobacco cessation program. Home medications were otherwise continued. As noted folic acid, nicotine, nystatin, and thiamine prescriptions were provided to the patient. He was seen by PT/OT who recommended discharge home. He was discharged home today. Instructed to follow-up with his primary care provider within 7 to 10 days of discharge, sooner if needed. Recommend recheck CBC, CMP, magnesium at that visit. Recommend outpatient podiatry follow-up as his toenails are quite overgrown. Recommend outpatient PFT after patient symptoms have improved to confirm diagnosis of COPD. Should symptoms return or worsen patient was instructed to contact his primary care provider or return to the emergency room. - Patient Instructions Diet: Heart Healthy Diet Activity: As Tolerated Driving: Do Not Drive (today ) Notify Provider of: Fever, Increased Pain, Nausea and/or Vomiting Other/Special Instructions: Follow-up with primary care provider within 7-10 days of discharge, sooner if needed. Resume home medications as directed. Take all new medications as prescribed. These were sent to clinic pharmacy as we discussed. We discussed your smoking status and you indicated you wanted nicotine patches. These were sent to clinic pharmacy as well. As we discussed you will need an outpatient pulmonary function test after discharge. This can be scheduled by your primary care provider. Be sure to discuss this with him on your follow-up appointment. Should symptoms return or worsen contact your primary care provider or return to the Emergency Department. - Discharge Plan *PRESCRIPTION DRUG MONITORING PROGRAM REVIEWED*: No *COPY OF PRESCRIPTION DRUG MONITORING REPORT IN PATIENT JOE: No Prescriptions/Med Rec: Folic Acid 1 mg PO DAILY #20 tablet Nicotine [Habitrol] 21 mg TRDERM DAILY #14 patch Nystatin [Nystop] 0 gm TOP BID #1 bottle Thiamine [Vitamin B-1] 100 mg PO BEDTIME #20 tablet Home Medications: Home Meds Apixaban [Eliquis] 5 mg PO BID 03/12/20 [History] atenoloL [Atenolol] 100 mg PO DAILY 03/12/20 [History] hydroCHLOROthiazide [Hydrochlorothiazide] 12.5 mg PO DAILY 03/12/20 [History] lisinopriL [Lisinopril] 5 mg PO DAILY 03/12/20 [History] Folic Acid 1 mg PO DAILY #20 tablet 03/16/20 [Rx] Nicotine [Habitrol] 21 mg TRDERM DAILY #14 patch 03/16/20 [Rx] Nystatin [Nystop] 0 gm TOP BID #1 bottle 03/16/20 [Rx] Thiamine [Vitamin B-1] 100 mg PO BEDTIME #20 tablet 03/16/20 [Rx] Oxygen Therapy Mode: Room Air Patient Handouts: Chronic Obstructive Pulmonary Disease Exacerbation, [id number], Alcohol Use Disorder, Alcohol Intoxication, [id number], Steps to Quit Smoking Referrals: Matteo Kaur Jr, MD [Primary Care Provider] - 03/20/20 9:30 am (Please follow up with Dr. Kaur on Mar 20 at 9:30. Please discuss your need for pulmonary function tests with Dr. Kaur at this appointment. ) - Discharge Summary/Plan Comment DC Time >30 min.: Yes (45 mins ) - General Info Date of Service: 03/16/20 Admission Dx/Problem (Free Text: Admission Diagnosis/Problem Admission Diagnosis/Problem COPD, Moderate chronic obstructive pulmonary disease Functional Status: Reports: Pain Controlled, Tolerating Diet, Ambulating, Urinating. Denies: New Symptoms - Review of Systems General: Reports: No Symptoms. Denies: Fever, Weakness, Fatigue, Malaise, Chills HEENT: Reports: No Symptoms. Denies: Headaches, Sore Throat Pulmonary: Reports: No Symptoms. Denies: Shortness of Breath, Cough, Sputum, Wheezing Cardiovascular: Reports: No Symptoms. Denies: Chest Pain, Palpitations, Dyspnea on Exertion Gastrointestinal: Reports: No Symptoms. Denies: Abdominal Pain, Constipation, Diarrhea, Nausea, Vomiting Genitourinary: Reports: No Symptoms. Denies: Pain Musculoskeletal: Reports: No Symptoms Skin: Reports: No Symptoms. Denies: Cyanosis Neurological: Reports: Tremors (patient reports this is baseline for him). Denies: Pre-Existing Deficit, Difficulty Walking, Weakness, Gait Disturbance Psychiatric: Reports: No Symptoms - Patient Data Vitals - Most Recent: Last Vital Signs Temp 97.9 F 03/16/20 07:13 Pulse 91 03/16/20 07:13 Resp 16 03/16/20 07:13 BP 127/84 03/16/20 07:13 Pulse Ox 93 L 03/16/20 07:13 Weight - Most Recent: 179 lb 12.8 oz I&O - Last 24 hours: Intake & Output 03/15/20 03/16/20 03/16/20 22:59 06:59 14:59 Intake Total 690 50 Output Total 250 600 Balance 440 -550 Lab Results - Last 24 hrs: Laboratory Results - last 24 hr 03/16/20 03/16/20 Range/Units 05:30 05:30 WBC 9.06 (4.23-9.07) K/mm3 RBC 3.33 L (4.63-6.08) M/mm3 Hgb 11.4 L (13.7-17.5) gm/dl Hct 35.5 L (40.1-51.0) % MCV 106.6 H (79.0-92.2) fl MCH 34.2 H (25.7-32.2) pg MCHC 32.1 L (32.2-35.5) g/dl RDW Std Deviation 53.4 H (35.1-43.9) fL Plt Count 199 (163-337) K/mm3 MPV 10.2 (9.4-12.3) fl Neut % (Auto) 74.2 H (34.0-67.9) % Lymph % (Auto) 16.8 L (21.8-53.1) % [place] % (Auto) 8.2 (5.3-12.2) % Eos % (Auto) 0.4 L (0.8-7.0) Baso % (Auto) 0.0 L (0.1-1.2) % Neut # (Auto) 6.72 H (1.78-5.38) K/mm3 Lymph # (Auto) 1.52 (1.32-3.57) K/mm3 [place] # (Auto) 0.74 (0.30-0.82) K/mm3 Eos # (Auto) 0.04 (0.04-0.54) K/mm3 Baso # (Auto) 0.00 L (0.01-0.08) K/mm3 Manual Slide Review Abnormal smear Sodium 144 (136-145) mEq/L Potassium 3.9 (3.5-5.1) mEq/L Chloride 108 H (98-107) mEq/L Carbon Dioxide 25 (21-32) mEq/L Anion Gap 14.9 (5-15) BUN 27 H (7-18) mg/dL Creatinine 1.1 (0.7-1.3) mg/dL Est Cr Clr Drug Dosing 64.52 mL/min Estimated GFR (MDRD) > 60 (>60) mL/min BUN/Creatinine Ratio 24.5 H (14-18) Glucose 104 (80-115) mg/dL Calcium 7.9 L (8.5-10.1) mg/dL Magnesium 2.0 (1.8-2.4) mg/dl Total Bilirubin 1.0 (0.2-1.0) mg/dL AST 42 H (15-37) U/L ALT 51 (16-63) U/L Alkaline Phosphatase 83 (46-116) U/L Total Protein 5.5 L (6.4-8.2) g/dl Albumin 2.6 L (3.4-5.0) g/dl Globulin 2.9 gm/dL Albumin/Globulin Ratio 0.9 L (1-2) SHIRLEY Results - Last 24 hrs: Microbiology 03/12/20 13:40 Aerobic Blood Culture - Preliminary Blood - Venous - Lab Draw NO GROWTH AFTER 3 DAYS Anaerobic Blood Culture - Preliminary NO GROWTH AFTER 3 DAYS 03/12/20 13:30 Aerobic Blood Culture - Preliminary Blood - Venous NO GROWTH AFTER 3 DAYS Anaerobic Blood Culture - Preliminary NO GROWTH AFTER 3 DAYS Med Orders - Current: Current Medications Acetaminophen (Tylenol) 650 mg PO Q4H PRN PRN Reason: Pain (Mild 1-3)/fever Albuterol/Ipratropium (Duoneb 3.0-0.5 Mg/3 Ml) 3 ml NEB Q4H PRN PRN Reason: Shortness Of Breath/wheezing Last Admin: 03/15/20 08:46 Dose: 3 ml Documented by: Apixaban (Eliquis) 5 mg PO BID ON LICENSE OF [facility] Last Admin: 03/15/20 20:33 Dose: 5 mg Documented by: Benzonatate (Tessalon Perles) 100 mg PO TID ON LICENSE OF [facility] Last Admin: 03/15/20 20:33 Dose: 100 mg Documented by: Docusate Sodium (Colace) 100 mg PO BID PRN PRN Reason: Constipation Last Admin: 03/12/20 17:48 Dose: 100 mg Documented by: Folic Acid (Folic Acid) 1 mg PO DAILY ON LICENSE OF [facility] Last Admin: 03/15/20 08:07 Dose: 1 mg Documented by: Hydrochlorothiazide (Hydrochlorothiazide) 12.5 mg PO DAILY ON LICENSE OF [facility] Last Admin: 03/15/20 08:14 Dose: 12.5 mg Documented by: Azithromycin 500 mg/ Sodium (Chloride) 250 mls @ 250 mls/hr IV Q24H ON LICENSE OF [facility] Last Admin: 03/15/20 16:32 Dose: 250 mls/hr Documented by: Lisinopril (Prinivil) 5 mg PO DAILY ON LICENSE OF [facility] Last Admin: 03/15/20 08:14 Dose: 5 mg Documented by: Lorazepam (Ativan) 0 mg IVPUSH Q4H PRN; Protocol PRN Reason: Withdrawal Symptoms Last Admin: 03/13/20 09:33 Dose: 1 mg Documented by: Miscellaneous Information (Remove Patch) 0 ea TRDERM DAILY ON LICENSE OF [facility] Last Admin: 03/15/20 08:08 Dose: 1 ea Documented by: Nicotine (Habitrol) 21 mg TRDERM DAILY ON LICENSE OF [facility] Last Admin: 03/15/20 08:07 Dose: 21 mg Documented by: Atenolol 100 Mg (Ptom) 0 mg PO DAILY ON LICENSE OF [facility] Last Admin: 03/15/20 08:13 Dose: 100 mg Documented by: Nystatin (Nystop) 0 gm TOP BID ON LICENSE OF [facility] Last Admin: 03/15/20 20:33 Dose: 1 applic Documented by: Ondansetron HCl (Zofran Odt) 4 mg PO Q6H PRN PRN Reason: nausea, able to take PO Oxycodone HCl (Oxycodone) 5 mg PO Q4H PRN PRN Reason: Pain (moderate 4-6) Pantoprazole Sodium (Protonix Iv) 40 mg IVPUSH Q12H ON LICENSE OF [facility] Last Admin: 03/15/20 20:33 Dose: 40 mg Documented by: Saccharomyces Boulardii (Florastor) 500 mg PO DAILY ON LICENSE OF [facility] Last Admin: 03/15/20 12:14 Dose: 500 mg Documented by: Sodium Chloride (Saline Flush) 10 ml FLUSH ASDIRECTED PRN PRN Reason: Keep Vein Open Last Admin: 03/12/20 13:11 Dose: 10 ml Documented by: Thiamine HCl (Vitamin B-1) 100 mg PO BEDTIME ON LICENSE OF [facility] Last Admin: 03/15/20 20:33 Dose: 100 mg Documented by: Trazodone HCl (Trazodone) 25 mg PO BEDTIME ON LICENSE OF [facility] Last Admin: 03/15/20 21:36 Dose: 25 mg Documented by: Discontinued Medications Albuterol (Proventil Hfa) 0 gm INH ONETIME ONE Stop: 03/12/20 13:04 Last Admin: 03/12/20 13:22 Dose: 2 puff Documented by: Ceftriaxone Sodium 2 gm/ (Sodium Chloride) 100 mls @ 200 mls/hr IV ONETIME ONE Stop: 03/12/20 15:20 Last Admin: 03/12/20 15:15 Dose: 200 mls/hr Documented by: Lactated Ringer's (Ringers, Lactated) 1,000 mls @ 1,000 mls/hr IV ASDIRECTED ON LICENSE OF [facility] Stop: 03/14/20 15:59 Last Admin: 03/12/20 15:14 Dose: 1,000 mls/hr Documented by: Sodium Chloride (Normal Saline) 1,000 mls @ 75 mls/hr IV ASDIRECTED ON LICENSE OF [facility] Sodium Chloride (Normal Saline) 1,000 mls @ 125 mls/hr IV ASDIRECTED ON LICENSE OF [facility] Last Admin: 03/13/20 18:35 Dose: 125 mls/hr Documented by: Magnesium Sulfate (Magnesium Sulfate In Water Premix) 2 gm in 50 mls @ 25 mls/hr IV ONETIME ONE Stop: 03/13/20 16:53 Last Admin: 03/13/20 15:13 Dose: 25 mls/hr Documented by: Methylprednisolone Sodium Succinate (Solu-Medrol) 125 mg IVPUSH ONETIME ONE Stop: 03/12/20 13:05 Last Admin: 03/12/20 13:10 Dose: 125 mg Documented by: Prednisone (Prednisone) 40 mg PO DAILY ON LICENSE OF [facility] Stop: 03/14/20 09:01 Last Admin: 03/14/20 08:22 Dose: 40 mg Documented by: Saccharomyces Boulardii (Florastor) 500 mg PO DAILY ADAMA - Exam Quality Assessment: Reports: DVT Prophylaxis General: Reports: Alert, Oriented, Cooperative, No Acute Distress HEENT: Reports: Pupils Equal, Pupils Reactive, Mucous Membr. Moist/[place] Neck: Reports: Supple, Trachea Midline Lungs: Reports: Clear to Auscultation, Normal Respiratory Effort, Decreased Breath Sounds Cardiovascular: Reports: Irregular Rhythm GI/Abdominal Exam: Normal Bowel Sounds, Soft, Non-Tender, No Distention (Male) Exam: Deferred Rectal (Males) Exam: Deferred Back Exam: Reports: Normal Inspection, Decreased Range of Motion Extremities: Normal Inspection, Normal Range of Motion, Non-Tender, No Pedal Edema, Normal Capillary Refill Skin: Reports: Warm, Dry, Intact Neurological: Reports: No New Focal Deficit Psy/Mental Status: Reports: Alert
[2020-03-16] MEDS ORDERED: Saccharomyces Boulardii (Probiotic) 250 MG Cap PO SCH (09:00)
== END 2020-03-16 12:37 | disposition home or self-care (01) ==
LOC: JD.ED 12:50 → JD.MS 16:04
PROVIDERS: ADMIT Internal Medicine; ATTEND Internal Medicine
DX: J96.01 Acute respiratory failure with hypoxia (principal); J44.1 Chronic obstructive pulmonary disease with (acute) exacerbation; F10.129 Alcohol abuse with intoxication, unspecified; I48.20 Chronic atrial fibrillation, unspecified; F17.200 Nicotine dependence, unspecified, uncomplicated; E86.0 Dehydration; R79.89 Other specified abnormal findings of blood chemistry; Z79.899 Other long term (current) drug therapy; Z20.828 Contact with and (suspected) exposure to other viral communicable diseases
CPT/HCPCS: 36415; 70450; 71045; 80053; 80307; 81001; 83605; 83735; 84484; 85025; 85610; 86140; 87040; 93005; 94640; 94760; 96365; 96366; 96367; 96375; 96376; 97161; 97162; 99285; A9270; C9113; G0378; J0456; J0696; J2060; J2930; J3475; J7030; J7050; J7120; J7512; U0002; 93010; 99284; J7620-GY